=== PATIENT | male | born 1955 | race Caucasian/White ===

== ENCOUNTER 2020-04-13 09:33 | Outpatient (REF) | payer SELFPAY | END 2020-04-13 09:34 | disposition home or self-care (01) | LOC: HO.HAP 09:33 | PROVIDERS: Visit Provider Nurse Practitioner Family | DX: Z46.1 Encounter for fitting and adjustment of hearing aid (principal) | CPT/HCPCS: 92700 ==

== ENCOUNTER 2021-02-08 09:42 | Outpatient (REF) | payer SELFPAY ==
--- NOTE | 2021-02-08 11:24 | MHC.AU.HFU ---
Hearing Instrument Follow-Up- Binaural Date of Visit: 02/08/21 Right Ear: Director Of Extension Work: Phonak Model: AVELINA Q50-UP Serial Number: [id number] Repair Warranty: Loss and Damage Warranty: Battery Size: 675 Color: Beige Left Ear: Currently using a loaner Phonak Avelina B90-UP (#[id number]). Loaned to patient on 07/16/2018. Follow-Up Summary: Patient reports that the volume on his right hearing aid has been going up and down randomly. Both hearing aids were inspected. Significant debris in both battery compartments, worse in the right. Microphone filters on the right hearing aid were dark, suggesting they were mostly clogged. Molds cleaned and re-tubed. Microphone filters replaced on the right instrument. Microphones vacuumed on the left instrument (no filters on that model). [place] replaced. Debris cleaned out of battery compartments. Took volume control switch off the right hearing aid, cleaned underneath it, and put it back on. Put both hearing aids in the yolk spray drier for several minutes. Hearing aids are both amplifying clearly after maintenance. The right side does not appear to be changing volume randomly at the moment; however, it has been an intermittent issue and we cannot yet be certain if maintenance resolved the problem. Patient reports that he still has [employer], which does not cover hearing aid services. He has been trying to get back on [facility], but has been unsuccessful. Provided patient with a form containing contact information for [facility]. Strongly suggested that he contact them to discuss a new pair of hearing aids. Diagnosis Code(s): Primary Diagnosis: H90.3 Bilateral Sensorineural Hearing Loss Signature: Provider: Farnaz Sweet, [facility]
== END 2021-02-08 09:43 | disposition home or self-care (01) ==
LOC: HO.HAP 09:42
PROVIDERS: Visit Provider Nurse Practitioner Family
DX: Z46.1 Encounter for fitting and adjustment of hearing aid (principal); H90.3 Sensorineural hearing loss, bilateral
CPT/HCPCS: 99499

== ENCOUNTER 2021-03-31 12:38 | Inpatient (IN) | payer MEDICARE, OTHER, SELFPAY ==
--- NOTE | ~2021-03-31 | XR_ITS ---
EXAMINATION: XR CHEST CLINICAL INFORMATION: SOB. COMPARISON: None TECHNIQUE: Frontal view of the chest was obtained. FINDINGS: No significant abnormality is noted involving the heart, lungs, mediastinum, bony thorax or soft tissues. XR/XR chest 1V IMPRESSION: Unremarkable chest examination.
--- NOTE | ~2021-03-31 | CT_ITS ---
EXAMINATION: CT HEAD WITHOUT CONTRAST CLINICAL INFORMATION: Right-sided weakness COMPARISON: None TECHNIQUE: Contiguous axial imaging was performed from the skull base to vertex without intravenous administration of contrast. This CT examination was performed using dose optimization techniques as appropriate, variously including the following: *Automated exposure control *Adjustment of mA and/or kV according to patient size (this includes techniques or standardized protocols for targeted exams where dose is matched to indication/reason for exam; i.e. extremities or head) *Use of iterative reconstruction technique DLP: 709 mGy-cm FINDINGS: No intracranial hemorrhage, tumors or acute infarcts are noted. Mild diffuse commensurate prominence of ventricles and sulci is noted. No focal parenchymal lesions the brain. No abnormal extra-axial fluid collections. No significant opacification of the visualized paranasal sinuses, mastoid air cells and middle ear cavities. CT/CT head/brain wo con IMPRESSION: -Normal unenhanced CT the head.
--- NOTE | ~2021-03-31 | CT_ITS ---
EXAMINATION: CT ANGIOGRAM NECK CLINICAL INFORMATION: Ataxia. Right-sided weakness. COMPARISON: CT head 03/31/2021. TECHNIQUE: IV contrast enhanced CT angiography of the head and neck. Intravenous contrast: Omnipaque 350 70 mL. The degree of stenosis determined by NASCET criteria. This CT examination was performed using dose optimization techniques as appropriate, variously including the following: *Automated exposure control *Adjustment of mA and/or kV according to patient size (this includes techniques or standardized protocols for targeted exams where dose is matched to indication/reason for exam; i.e. extremities or head) *Use of iterative reconstruction technique DLP: 1580 mGy-cm FINDINGS: CT angiography neck: Nonocclusive calcific atherosclerosis within the transverse aorta. Common origin of the brachiocephalic and left common carotid arteries. Nonocclusive ostial calcifications associated with the origins of the great vessels. 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 Mild (less than 50%) bilateral carotid bulb and proximal internal carotid artery stenoses secondary to eccentric anomaly calcific and also noncalcific atherosclerotic plaque without ulceration. Dominant left vertebral artery. Nonocclusive ostial calcifications of the origin of the left vertebral artery which emanates from the transverse aorta is noted above. CT angiography head: Partial type origin of the right posterior cerebral artery. Nonocclusive segmental calcific atherosclerosis of the cavernous portions of the internal carotid arteries. [place] anterior cerebral artery emanating from the A1 segment of the left anterior cerebral artery. Arterial phase evaluation of the brain demonstrates no gross sac perfusion abnormalities of the brain parenchyma. Mild diffuse commensurate prominence of ventricles and sulci. No intrarenal hemorrhage, tumors or acute infarcts noted. Clear internally visualized lung apices. Normal thyroid. No cervical lymphadenopathy. Delayed IV contrast-enhanced CT the head: No abnormal enhancement the brain parenchyma. Moderate multilevel intervertebral disc space narrowing and posterior endplate osteophytosis of the cervical spine along with moderate multilevel facet hypertrophic changes. CT/CT angio head neck IMPRESSION: CT angiography head and neck: -No acute abnormalities. -No large vessel intracranial occlusions. -Mild (less than 50%) stenoses of the origins of the internal carotid artery secondary to prominently calcific eccentric, nonulcerative atherosclerotic plaque. 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 Common origin of the brachiocephalic and left common carotid arteries.
--- NOTE | ~2021-03-31 | MR_ITS ---
EXAMINATION: MR BRAIN WITHOUT CONTRAST CLINICAL INFORMATION: Off balance. Ataxia. Evaluate for stroke. COMPARISON: Head CTA March 31, 2021. TECHNIQUE: Multiplanar, multisequence imaging of the brain was performed without intravenous contrast. FINDINGS: There is a small acute lacunar infarct within the left lateral thalamus. No large territorial infarction is seen. There is no hemorrhage, mass, or extra-axial fluid collection. Mild patchy foci of T2/FLAIR hyperintensity are seen within the cerebral white matter. The ventricles are normal in size without evidence of hydrocephalus. The major arterial flow voids are preserved at the skull base. The orbital contents appear normal with lens replacements noted. Degenerative changes are incidentally seen within the upper cervical spine. MR/MR head/brain wo con IMPRESSION: Small focus of acute lacunar infarction within the left lateral thalamus. No large territory infarction or hemorrhage is seen.
[2021-03-31 12:59] VITALS: BP 174/83; BP 185/85; PULSE 96; RESP 19; TEMP 36.6; O2SAT 97; O2SAT 99; BMI 32.2
--- NOTE | 2021-03-31 13:39 | ED.GENADULT ---
HPI - General Adult General Chief complaint: General Medical Stated complaint: R LEG WEAKNESS W/FALL T-1 Time Seen by Provider: 03/31/21 13:27 History of Present Illness HPI narrative: Patient is a 66-year-old male presents today with having right-sided weakness. Patient has a baseline history of diabetes, hypertension, hypercholesterolemia. Presented today with having right-sided weakness. Patient has stated that his last known well time was yesterday at 15:00. Patient denies any fever chills. No history of stroke on that side in the past. Patient noted that he was dragging his feet today. Patient has a difficulty with hearing. Usually use sign language. Per patient his voice is approximately the same. He is able to do hand gestures without any difficulties. He has a slight tingling in his hands. But his weakness almost prevail in in the right leg. He feels like his leg is dragging. Patient denies any trauma to his leg. No history of similar symptoms in the past. No coughing or congestion or upper respiratory symptoms. Patient is immunized for COVID. Related Data Allergies Allergy/AdvReac Type Severity Reaction Status Date / Time No Known Allergies Allergy Unverified 03/23/20 16:26 [No Known Allergies*] Review of Systems Review of Systems: No fever no chills no nausea no vomiting Positive weakness to the right leg Positive weakness to the right hand No changes in speech All systems reviewed otherwise negative [facility] Past Medical History Medical History (Updated 03/31/21 @ 14:39 by Claudia Murphy MD) Diabetes High cholesterol HTN (hypertension) Social History Social History Advance Directives: No Advance Directives Information Provided: No Physical Exam Vital Signs: Vital Signs: Last Vital Signs Temp 98 F 03/31/21 12:59 Resp 19 03/31/21 12:59 BP 174/83 H 03/31/21 12:59 Pulse Ox 97 03/31/21 12:59 Body Mass Index 32.2 Appearance: Alert. Oriented X3. No acute distress. Eyes: Pupils equal, round and reactive to light. ENT: Pharynx normal. Neck: Normal inspection. Neck supple. No lymph nodes noted. No crepitus CVS: Normal heart rate and rhythm. Pulses normal. Normal S1 and S2 Respiratory: No respiratory distress. Breath sounds normal. No Wheezing. No rales Abdomen: Soft and nontender. No rigidity. No distention. good BS x4 Skin: Skin warm and dry. Normal skin color. Normal skin turgor. Extremities: No lower extremity edema. Neurovascular intact to all extremities. No Lacerations. No Rash Neuro: Oriented X 3. No motor deficit. No sensory deficit. Moving all extermities. Positive slight weakness on lifting of right leg. Able to hold up against gravity for 5 seconds. Slight tremors noted when patient is elevating his arm. There is good strength in upper extremity. [id number] grossly intact. Rapid alternating movement grossly intact. Patient has excellent hand grasp bilaterally 5/5. There is no facial droop noted. Patient's voice appeared normal to him. NIH Stroke Scale Internal: Initial- Upon Arrival Level of Consciousness: Alert Level of Consciousness Questions: Answers both questions correctly Level of Consciousness Commands: Performs both tasks correctly Best Gaze: Normal Visual: No visual loss Facial Palsy: Normal Motor Arm (Right): No drift Motor Arm (Left): No drift Motor Leg (Right): Drift Motor Leg (Left): No drift Limb Ataxia: Absent Sensory: Normal Best Language: No aphasia Dysarthia: Normal Extinction and Inattention: No abnormality Score: 1 Medical Decision Making MDM Narrative Medical decision making narrative: CT scan of the head was grossly negative for any acute evidence of bleeding. Electrolytes unremarkable. Patient's symptoms is at 23:00 hours at this point. Not a good candidate for tPA. Patient's symptoms are minor. Not a good candidate for tPA. Will admit for further evaluation given patient has numerous risk factors for stroke. In stable condition awaiting admissions. Lab Data Result diagrams: 03/31/21 13:35 03/31/21 13:35 Labs: Lab Results 03/31/21 03/31/21 03/31/21 Range/Units 13:35 13:35 13:35 WBC 10.8 (4.8-10.8) X10*3/uL RBC 4.27 L (4.60-5.80) X10*6/uL Hgb 13.3 L (14.0-18.0) g/dl Hct 38.8 L (42-52) % MCV 90.9 (80-98) fL MCH 31.1 (27.0-33.0) pg MCHC 34.3 (31.0-36.0) g/dl RDW 12.9 (11.0-16.0) % Plt Count 341 (160-400) X10*3/uL MPV 9.7 (9.4-12.4) fL Immature Gran % (Auto) 0.4 (0.0-0.4) % Neut % (Auto) 61.3 (45-73) % Lymph % (Auto) 26.7 (20-40) % [place] % (Auto) 7.9 (2-11) % Eos % (Auto) 3.0 (0-4) % Baso % (Auto) 0.7 (0-2) % Lymph # (Auto) 2.9 (1.2-4.9) X10*3/uL [place] # (Auto) 0.9 (0.1-1.2) X10*3/uL Eos # (Auto) 0.3 (0.0-0.4) X10*3/uL Baso # (Auto) 0.1 (0.0-0.2) X10*3/uL Abs Immat Gran (auto) 0.04 H (0.00-0.03) X10*3/uL Absolute Neuts (auto) 6.6 (2.0-8.3) X10*3/uL Absolute Nucleated RBC 0.000 (0.0-0.012) X10*3/uL Nucleated RBC % (auto) 0.0 (0.0-0.2) /100WBC PT 10.5 (9.9-13.0) SEC INR 0.9 (0.9-1.1) Sodium 141 (135-145) mmol/L Potassium 3.7 (3.3-5.1) mmol/L Chloride 107 (96-108) mmol/L Carbon Dioxide 21 L (22-29) mmol/L Anion Gap 17 (12-20) BUN 17 H (9-16) mg/dL Creatinine 1.11 (0.5-1.4) mg/dL Estim Creat Clear Calc 66.2 Estimated GFR > 60 Random Glucose 95 (60-115) mg/dL Calcium 9.4 (8.4-10.2) mg/dL Discharge Plan Discharge Clinical Impression: Acute CVA (cerebrovascular accident) Patient Disposition: Admitted As Inpatient
[2021-03-31 13:45] LABS: MANUAL DIFF FLAG NO
[2021-03-31 13:48] LABS: Basophils Absolute Auto 0.1 X10*3/uL (0.0-0.2); Basophils Percent Auto 0.7 % (0-2); Eosinophils Absolute Auto 0.3 X10*3/uL (0.0-0.4); Hematocrit 38.8 % (42-52); Hemoglobin 13.3 g/dl (14.0-18.0); Imm Gran Abs Auto 0.04 X10*3/uL (0.00-0.03); Imm Gran Pct Auto 0.4 % (0.0-0.4); Lymphocytes Absolute Auto 2.9 X10*3/uL (1.2-4.9); Lymphocytes Percent Auto 26.7 % (20-40); Mean Corpuscular HGB Conc 34.3 g/dl (31.0-36.0); Mean Corpuscular Hemoglobin 31.1 pg (27.0-33.0); Mean Corpuscular Volume 90.9 fL (80-98); Mean Platelet Volume 9.7 fL (9.4-12.4); Monocytes Absolute Auto 0.9 X10*3/uL (0.1-1.2); Monocytes Percent Auto 7.9 % (2-11); Neutrophils Absolute Auto 6.6 X10*3/uL (2.0-8.3); Neutrophils Percent Auto 61.3 % (45-73); Platelet Count 341 X10*3/uL (160-400); Red Blood Count 4.27 X10*6/uL (4.60-5.80); Red Cell Distribution Width 12.9 % (11.0-16.0); White Blood Count 10.8 X10*3/uL (4.8-10.8)
[2021-03-31 13:55] LABS: INTERNATIONAL NORM RATIO 0.9 (0.9-1.1); Prothrombin Time 10.5 SEC (9.9-13.0)
[2021-03-31 14:01] LABS: Anion Gap 17 (12-20); Blood Urea Nitrogen 17 mg/dL (9-16); Calcium 9.4 mg/dL (8.4-10.2); Carbon Dioxide 21 mmol/L (22-29); Chloride 107 mmol/L (96-108); Creatinine Clr Calc Pharmacy 66.2; Estimated Glomerular Filt Rate > 60; Glucose Random 95 mg/dL (60-115); Potassium 3.7 mmol/L (3.3-5.1); Sodium 141 mmol/L (135-145)
[2021-03-31 16:22] VITALS: BP 157/74; PULSE 82; RESP 16; O2SAT 95
--- NOTE | 2021-03-31 16:26 | PM.EVENT ---
Event Note Date of Service: 03/31/21 Event Note: Patient seen examined case discussed with APC Patient presented with 12 hour history of right-sided weakness, unsteady gait and leaning more towards right, no prior history of stroke Patient has multiple risk factors for stroke including diabetes mellitus, hyperlipidemia, hypertension active tobacco use On examination Patient use sign language, awake alert answering questions appropriately CVS regular rate rhythm Abdomen obese soft nontender bowel sounds audible Extremities no edema Neuro exam, awake alert x3, unsteady gait, heel to redman and finger to nose test abnormal Assessment and plan Unsteady gait/right-sided weakness positive cerebellar signs on examination suggestive of cerebellar stroke CT head negative Case discussed with Dr. Mckeon he recommend to obtain MRI study, CT head and neck, avoid hypotension with goal of systolic BP greater than [address] patient on aspirin, continue statins, placed on diabetic diet follow blood sugars Strongly recommend to abstain from smoking, will place on nicotine patch Agree with treatment plan as per APC
--- NOTE | 2021-03-31 16:32 | PM.IMHP ---
History of Present Illness Date of Service: 03/31/21 <TAMI Mcknight - Last Filed: 03/31/21 17:36> Attending physician on admission: Eitan Moya <TAMI Mcknight - Last Filed: 03/31/21 17:36> Chief Complaint: Off balance <TAMI Mcknight - Last Filed: 03/31/21 17:36> This is a 66-year-old male with history of diabetes, hypertension, hyperlipidemia who presents to the emergency department with complaints of feeling off balance. Patient is legally deaf and primarily communicates with the use of [place] sign language. He states that around 4 or 5 pm last night he got up to walk around and started feeling off balance. He kept drifting to his right side. He felt that his right side may also be weaker than the left. He did not notice any change in his speech. He presented to the emergency department this afternoon when his symptoms persisted. Brain CT was unremarkable. Lab work was unremarkable. Physical exam revealed ongoing ataxia and the patient will be admitted to the hospital for further workup of probable cerebellar stroke. <TAMI Mcknight - Last Filed: 03/31/21 17:36> Review of Systems Review of Systems: Yes all other systems are reviewed and are negative <TAMI Mcknight - Last Filed: 03/31/21 17:36> Constitutional: Constitutional: Denies chills and Denies fever(s) <TAMI Mcknight - Last Filed: 03/31/21 17:36> Cardiovascular: Cardiovascular: Denies chest pain <TAMI Mcknight Last Filed: 03/31/21 17:36> Respiratory: Respiratory: Denies cough <TAMI Mcknight - Last Filed: 03/31/21 17:36> Gastrointestinal: Gastrointestinal: Denies abdominal pain <TAMI Mcknight - Last Filed: 03/31/21 17:36> [facility] Medical History: Medical History Diabetes High cholesterol HTN (hypertension) <TAMI Mcknight Last Filed: 03/31/21 17:36> Functional capacity: independent ambulation <TAMI Mcknight - Last Filed: 03/31/21 17:36> Pertinent family history: Mom has history of kidney cancer Father had history of CHF <TAMI Mcknight - Last Filed: 03/31/21 17:36> Social History: Social History Household Members: Children Household Members Other:: Son Housing: House Patient Tobacco Use Status: Current everyday Tobacco user Use of substances other than those prescribed or required for medical reasons: No Have you been hit, kicked, punched, or otherwise hurt by someone within the past year? If so, by whom?: No Do you feel safe in your current relationship?: No Current Relationship Is there a partner from a previous relationship who is making you feel unsafe now?: No Are you made to feel afraid or neglected: No Advance Directives: No Advance Directives Information Provided: No Nutrition Risks: No Nutritional Risk Poor oral hygiene: No <TAMI Mcknight - Last Filed: 03/31/21 17:36> Meds Allergies/Adverse reactions: Allergies Allergy/AdvReac Type Severity Reaction Status Date / Time No Known Allergies Allergy Unverified 03/23/20 16:26 [No Known Allergies*] <TAMI Mcknight - Last Filed: 03/31/21 17:36> Active Medications: Current Medications Acetaminophen (Acetaminophen 325 Mg Tablet) 650 mg PO Q6H PRN PRN Reason: Pain, Mild (Pain Scale 1-3) Aspirin (Aspirin Enteric Coated 81 Mg Tablet.) 81 mg PO DAILY DEAN Aspirin (Aspirin Enteric Coated 325 Mg Tablet.) 325 mg PO ONCE ONE Stop: 03/31/21 16:31 Atorvastatin Calcium (Atorvastatin Calcium 80 Mg Tablet) 80 mg PO BEDTIME DEAN Dextrose (Dextrose 50 % 25 Gm/50 Ml Vial) 25 gm IVPUSH Q15M PRN; Protocol PRN Reason: per Hypoglycemia Standing Ord. Docusate Sodium (Docusate Sodium 100 Mg Capsule) 100 mg PO DAILY PRN PRN Reason: Constipation Enoxaparin Sodium (Enoxaparin Sodium 40 Mg/0.4 Ml Syringe) 40 mg SUBCUT Q24H DEAN Glucose (Glucose Gel 15 Gm Gel..Gram.) 15 gm PO Q15M PRN; Protocol PRN Reason: per Hypoglycemia Standing Ord. Insulin Human Lispro (Insulin Lispro 100 Unit/Ml 3 Ml Vial) 0 unit SUBCUT QIDACHS [facility]; Protocol Nicotine (Nicotine 21 Mg Patch.Td24) 21 mg TRANSDERMA DAILY DEAN Ondansetron HCl (Ondansetron Hcl 4 Mg/2 Ml Vial) 4 mg IVPUSH Q8H PRN PRN Reason: Nausea and Vomiting Sodium Chloride (0.9 % Sodium Chloride Flush 3 Ml Syringe) 3 ml IVFLUSH QSHIFT [facility] <TAMI Mcknight - Last Filed: 03/31/21 17:36> Home medications: Home Medications Medication Instructions Recorded Confirmed Last Taken Type amlodipine 10 mg tablet 1 tab PO DAILY 03/31/21 03/31/21 Unknown History aspirin 81 mg tablet,delayed 1 tab PO DAILY 03/31/21 03/31/21 Unknown History release atorvastatin 20 mg tablet 1 tab PO DAILY 03/31/21 03/31/21 Unknown History dulaglutide 1.5 mg/0.5 mL 1.5 mg SUBCUT QWEEK 03/31/21 03/31/21 03/31/21 History subcutaneous pen injector (Trulicity) ergocalciferol (vitamin D2) 1,250 1 cap PO QWEEK 03/31/21 03/31/21 Unknown History mcg (50,000 unit) capsule glimepiride 4 mg tablet 1 tab PO QAM 03/31/21 03/31/21 Unknown History lisinopril 20 1 tab PO DAILY 03/31/21 03/31/21 Unknown History mg-hydrochlorothiazide 12.5 mg tablet metformin 1,000 mg tablet 1 tab PO BID 03/31/21 03/31/21 Unknown History omeprazole 20 mg capsule,delayed 1 cap PO DAILY 03/31/21 03/31/21 Unknown History release <TAMI Mcknight - Last Filed: 03/31/21 17:36> Physical Exam Vital Signs and Narrative: Vital Signs: Last Vital Signs Temp 98 F 03/31/21 12:59 Pulse 82 03/31/21 16:22 Resp 16 03/31/21 16:22 BP 157/74 H 03/31/21 16:22 Pulse Ox 95 03/31/21 16:22 Body Mass Index 32.2 <TAMI Mcknight - Last Filed: 03/31/21 17:36> Const: General: alert and awake <TAMI Mcknight - Last Filed: 03/31/21 17:36> Nutritional Appearance: well nourished <TAMI Mcknight - Last Filed: 03/31/21 17:36> Orientation/consciousness: patient oriented x3 <TAMI Mcknight - Last Filed: 03/31/21 17:36> HENMT: Head: Yes normocephalic and Yes atraumatic <TAMI Mcknight - Last Filed: 03/31/21 17:36> Eyes: Sclerae: sclerae normal <TAMI Mcknight - Last Filed: 03/31/21 17:36> Resp: Effort & Inspection: normal respiratory effort and no respiratory distress <TAMI Mcknight - Last Filed: 03/31/21 17:36> Auscultation: clear to auscultation bilaterally <TAMI Mcknight - Last Filed: 03/31/21 17:36> Cardio: Rate: regular rate <TAMI Mcknight - Last Filed: 03/31/21 17:36> Rhythm: regular rhythm <TAMI Mcknight - Last Filed: 03/31/21 17:36> GI: Palpation (GI): Soft to palpation and nontender <TAMI Mcknight - Last Filed: 03/31/21 17:36> Neuro: General: patient oriented x3 and moves all extremities <TAMI Mcknight - Last Filed: 03/31/21 17:36> Gait exam (Neuro): Ataxic gait present <TAMI Mcknight - Last Filed: 03/31/21 17:36> Coordination: No [id number] test normal and No [id number] test normal <TAMI Mcknight - Last Filed: 03/31/21 17:36> Results Labs CBC and Chem 7: : 04/01/21 06:25 04/01/21 06:25 <TAMI Mcknight - Last Filed: 03/31/21 17:36> Labs: Laboratory Results - last 24 hr 03/31/21 03/31/21 03/31/21 13:35 13:35 13:35 MCV 90.9 MCH 31.1 MCHC 34.3 RDW 12.9 Plt Count 341 MPV 9.7 Immature Gran % (Auto) 0.4 Neut % (Auto) 61.3 Lymph % (Auto) 26.7 [place] % (Auto) 7.9 Eos % (Auto) 3.0 Baso % (Auto) 0.7 Lymph # (Auto) 2.9 [place] # (Auto) 0.9 Eos # (Auto) 0.3 Baso # (Auto) 0.1 Abs Immat Gran (auto) 0.04 H Absolute Neuts (auto) 6.6 Absolute Nucleated RBC 0.000 Nucleated RBC % (auto) 0.0 PT 10.5 INR 0.9 Anion Gap 17 Estim Creat Clear Calc 66.2 Estimated GFR > 60 Random Glucose 95 Calcium 9.4 <TAMI Mcknight - Last Filed: 03/31/21 17:36> Imaging Radiologist's Impressions: Impressions Head CT 03/31/21 13:29 IMPRESSION: -Normal unenhanced CT the head. Chest X-Ray 03/31/21 13:30 IMPRESSION: Unremarkable chest examination. <TAMI Mcknight - Last Filed: 03/31/21 17:36> Assessment and Plan (1) Acute CVA (cerebrovascular accident): Status: Acute <TAMI Mcknight - Last Filed: 03/31/21 17:36> This is a 66-year-old male with a history of diabetes, hypertension, dyslipidemia, deafness, tobacco use who presents to the emergency department with 24 hours of unsteady gait Probable cerebellar stroke Symptoms ongoing for 24 hours, out of window for tPA Risk factors include: smoking, HTN, HLD, DM Brain CT unremarkable Seen by Neurology, recommend CTA of head and neck, MRI Neuro checks Echo PT/OT evaluation Check Lipid profile, HbA1c Will start aspirin, high intensity statin Allow for permissive hypertension with goal to keep BP above 160. BP medications will be placed on hold Smoking cessation has been advised Tobacco dependence NRT Diabetes Hold home medications SSI, POCs Hypertension Allow for permissive hypertension in the setting of probable stroke Hold home blood pressure medication gerd continue omeprazole DVT prophylaxis -Lovenox Code status-full code Attending physician-Dr. Moya <TAMI Mcknight - Last Filed: 03/31/21 17:36> Quality Stroke Does the patient have a stroke diagnosis?: Yes <TAMI Mcknight - Last Filed: 03/31/21 17:36> Reason for No Anti-thrombotic by Day Two: N/A - Med Ordered <TAMI Mcknight - Last Filed: 03/31/21 17:36> VTE Prior VTE?: No <TAMI Mcknight - Last Filed: 03/31/21 17:36> VTE Risk Level:: Medical - moderate - high <TAMI Mcknight - Last Filed: 03/31/21 17:36> VTE Device Contraindication: N/A - Device Ordered <TAMI Mcknight - Last Filed: 03/31/21 17:36> VTE Drug Contraindication: N/A - Med Ordered <TAMI Mcknight - Last Filed: 03/31/21 17:36>
[2021-03-31 16:57] LABS: Glucose, Whole Blood 53 mg/dL (60-115)
[2021-03-31] MEDS: Enoxaparin Sodium 40 MG/0.4 ML SYRINGE SUBCUT (17:16)
[2021-03-31] MEDS: Aspirin Enteric Coated 325 MG TABLET.DR PO (17:16)
[2021-03-31 17:17] LABS: COVID-19 Test Negative (Negative)
--- NOTE | 2021-03-31 17:20 | PC.NURSE ---
POC 53, pt given sandwich and apple juice. Neuros are unchanged, no weakness to right upper ext notedand pt reports only weak to right lower extr. Pt speech at baseline. skin pwd.
[2021-03-31 17:21] VITALS: BP 164/71; PULSE 86; RESP 16; O2SAT 97
[2021-03-31] MEDS: Nicotine 21 MG PATCH.TD24 TRANSDERMA (17:24)
[2021-03-31 17:44] LABS: Cholesterol 251 mg/dL; HDL Cholesterol 46 mg/dL; LDL Cholesterol Calculated 164 mg/dl; Triglycerides 208 mg/dL
[2021-03-31 17:49] LABS: Estimated Average Glucose 169 mg/dL; Hemoglobin A1C 198.1925 umol/L; Hemoglobin A1c % 7.5 %
[2021-03-31 17:53] LABS: Glucose, Whole Blood 102 mg/dL (60-115)
[2021-03-31] MEDS: iohexoL 350 MG/ML 100 ML INFUS..BTL IV (18:23)
[2021-03-31 19:35] LABS: Appearance Urine CLEAR; Color Urine STRAW; Glucose Urine UA 250 MG/DL (NEG); Leukocyte Esterase Urine NEG (NEG); Nitrite Urine NEG (NEG); Specific Gravity - Urine <= 1.005 (1.005-1.025); UACC Culture Trigger NO; Urine Blood TRACE (NEG); Urine Ketones NEG (NEG); Urine Protein 2+ MG/DL (NEG-TRACE)
[2021-03-31 19:45] LABS: RBC Urine 0-2 /HPF (0); Squamous Epithelial Cell Urine 1+ /LPF; WBC Urine 0-2 /HPF (0-4)
[2021-03-31 19:46] LABS: Amorphous Sediment Urine TRACE /LPF
[2021-03-31 22:00] VITALS: BP 170/78; PULSE 83; RESP 16; TEMP 36.2; O2SAT 97
[2021-03-31 23:18] LABS: Glucose, Whole Blood 99 mg/dL (60-115)
[2021-04-01] VITALS (9 sets, daily range): BP systolic 142–183; BP diastolic 66–82; PULSE 57–84; RESP 16–20; TEMP 36.2–36.9; O2SAT 95–99
[2021-04-01] MEDS: Atorvastatin Calcium 80 MG TABLET PO ×2 (00:01→20:08)
--- NOTE | 2021-04-01 00:06 | PC.NURSE ---
pt's poc 69, pt given turkey sandwich, apple juice and pudding, respirations even and unlabored, ns on the monitor, vs stable
--- NOTE | 2021-04-01 00:08 | PC.NURSE ---
report given to [facility] rn
[2021-04-01 00:44] LABS: Glucose, Whole Blood 69 mg/dL (60-115)
[2021-04-01 01:32] LABS: Glucose, Whole Blood 126 mg/dL (60-115)
[2021-04-01] MEDS: Omeprazole 20 MG CAPSULE.DR PO (06:55)
[2021-04-01 07:14] LABS: MANUAL DIFF FLAG NO
[2021-04-01 07:19] LABS: Basophils Absolute Auto 0.1 X10*3/uL (0.0-0.2); Basophils Percent Auto 0.9 % (0-2); Eosinophils Absolute Auto 0.4 X10*3/uL (0.0-0.4); Eosinophils Percent Auto 4.5 % (0-4); Hematocrit 33.5 % (42-52); Hemoglobin 11.3 g/dl (14.0-18.0); Imm Gran Abs Auto 0.04 X10*3/uL (0.00-0.03); Imm Gran Pct Auto 0.4 % (0.0-0.4); Lymphocytes Absolute Auto 2.3 X10*3/uL (1.2-4.9); Lymphocytes Percent Auto 25.5 % (20-40); Mean Corpuscular HGB Conc 33.7 g/dl (31.0-36.0); Mean Corpuscular Hemoglobin 30.4 pg (27.0-33.0); Mean Corpuscular Volume 90.1 fL (80-98); Mean Platelet Volume 10.1 fL (9.4-12.4); Monocytes Absolute Auto 0.9 X10*3/uL (0.1-1.2); Monocytes Percent Auto 9.6 % (2-11); Neutrophils Absolute Auto 5.3 X10*3/uL (2.0-8.3); Neutrophils Percent Auto 59.1 % (45-73); Platelet Count 310 X10*3/uL (160-400); Red Blood Count 3.72 X10*6/uL (4.60-5.80); Red Cell Distribution Width 12.7 % (11.0-16.0); White Blood Count 9.1 X10*3/uL (4.8-10.8)
[2021-04-01 07:47] LABS: Anion Gap 15 (12-20); Blood Urea Nitrogen 16 mg/dL (9-16); Calcium 8.7 mg/dL (8.4-10.2); Carbon Dioxide 25 mmol/L (22-29); Chloride 104 mmol/L (96-108); Cholesterol 206 mg/dL; Estimated Glomerular Filt Rate > 60; Glucose Random 170 mg/dL (60-115); HDL Cholesterol 34 mg/dL; LDL Cholesterol Calculated 133 mg/dl; Potassium 3.8 mmol/L (3.3-5.1); Sodium 140 mmol/L (135-145); Triglycerides 197 mg/dL
[2021-04-01 08:06] LABS: Glucose, Whole Blood 148 mg/dL (60-115)
[2021-04-01] MEDS: Aspirin Enteric Coated 81 MG TABLET.DR PO (08:32)
[2021-04-01 11:17] LABS: Glucose, Whole Blood 128 mg/dL (60-115)
--- NOTE | 2021-04-01 12:39 | HO.PM.IMPN ---
Subjective Subjective Date of Service: 04/01/21 <TAMI Mcknight - Last Filed: 04/01/21 12:55> 04/01/21 <Eitan Moya MD - Last Filed: 04/01/21 18:29> Interval History: Seen and examined this morning Follow-up for probable cerebellar stroke Episode of hypoglycemia documented yesterday afternoon, pt asymptomatic No overnight events Patient reports that his balance is improving. He was reportedly able to ambulate without leaning to the side <TAMI Mcknight - Last Filed: 04/01/21 12:55> Review of Systems Review of Systems: Yes all other systems are reviewed and are negative <TAMI Mcknight - Last Filed: 04/01/21 12:55> Constitutional Constitutional: Denies chills and Denies fever(s) <TAMI Mcknight - Last Filed: 04/01/21 12:55> Cardiovascular Cardiovascular: Denies chest pain <TAMI Mcknight - Last Filed: 04/01/21 12:55> Respiratory Respiratory: Denies cough <TAMI Mcknight - Last Filed: 04/01/21 12:55> Gastrointestinal Gastrointestinal: Denies abdominal pain <TAMI Mcknight - Last Filed: 04/01/21 12:55> Physical Exam Vital Signs: Vital Signs: Last Vital Signs Temp 97.4 F 04/01/21 12:00 Pulse 67 04/01/21 12:00 Resp 18 04/01/21 12:00 BP 183/68 H 04/01/21 12:00 Pulse Ox 97 04/01/21 12:00 Body Mass Index 32.2 <TAMI Mcknight - Last Filed: 04/01/21 12:55> Const: General: alert and awake <TAMI Mcknight - Last Filed: 04/01/21 12:55> Nutritional Appearance: well nourished <TAMI Mcknight - Last Filed: 04/01/21 12:55> Orientation/consciousness: patient oriented x3 <TAMI Mcknight Last Filed: 04/01/21 12:55> HENMT: Head: Yes normocephalic and Yes atraumatic <TAMI Mcknight - Last Filed: 04/01/21 12:55> Eyes: Sclerae: sclerae normal <TAMI Mcknight Last Filed: 04/01/21 12:55> Resp: Effort & Inspection: normal respiratory effort and no respiratory distress <TAMI Mcknight Last Filed: 04/01/21 12:55> Auscultation: clear to auscultation bilaterally <TAMI Mcknight Last Filed: 04/01/21 12:55> Cardio: Rate: regular rate <TAMI Mcknight Last Filed: 04/01/21 12:55> Rhythm: regular rhythm <TAMI Mcknight Last Filed: 04/01/21 12:55> GI: Palpation (GI): Soft to palpation and nontender <TAMI Mcknight - Last Filed: 04/01/21 12:55> Neuro: Other: still with dysmetria on finger to nose test <TAMI Mcknight - Last Filed: 04/01/21 12:55> General: patient oriented x3 and moves all extremities <TAMI Mcknight Last Filed: 04/01/21 12:55> Objective Data Active Medications Acetaminophen (Acetaminophen 325 Mg Tablet) 650 mg PO Q6H PRN PRN Reason: Pain, Mild (Pain Scale 1-3) Aspirin (Aspirin Enteric Coated 81 Mg Tablet.) 81 mg PO DAILY [facility] Last Admin: 04/01/21 08:32 Dose: 81 mg Documented by: LUIZ Atorvastatin Calcium (Atorvastatin Calcium 80 Mg Tablet) 80 mg PO BEDTIME [facility] Last Admin: 04/01/21 00:01 Dose: 80 mg Documented by: SREEDHAR Dextrose (Dextrose 50 % 25 Gm/50 Ml Vial) 25 gm IVPUSH Q15M PRN; Protocol PRN Reason: per Hypoglycemia Standing Ord. Docusate Sodium (Docusate Sodium 100 Mg Capsule) 100 mg PO DAILY PRN PRN Reason: Constipation Enoxaparin Sodium (Enoxaparin Sodium 40 Mg/0.4 Ml Syringe) 40 mg SUBCUT Q24H [facility] Last Admin: 03/31/21 17:16 Dose: 40 mg Documented by: ATTILA Glucose (Glucose Gel 15 Gm Gel..Gram.) 15 gm PO Q15M PRN; Protocol PRN Reason: per Hypoglycemia Standing Ord. Insulin Human Lispro (Insulin Lispro 100 Unit/Ml 3 Ml Vial) 0 unit SUBCUT QIDACHS [facility]; Protocol Last Admin: 04/01/21 08:13 Dose: Not Given Documented by: LUIZ Non-Admin Reason: No Insulin Coverage Nicotine (Nicotine 21 Mg Patch.Td24) 21 mg TRANSDERMA DAILY [facility] Last Admin: 04/01/21 08:37 Dose: Not Given Documented by: LUIZ Non-Admin Reason: Patient Refused Omeprazole (Omeprazole 20 Mg Capsule.Dr) 20 mg PO DAILY@0630 [facility] Last Admin: 04/01/21 06:55 Dose: 20 mg Documented by: BIJU Ondansetron HCl (Ondansetron Hcl 4 Mg/2 Ml Vial) 4 mg IVPUSH Q8H PRN PRN Reason: Nausea and Vomiting Sodium Chloride (0.9 % Sodium Chloride Flush 3 Ml Syringe) 3 ml IVFLUSH QSHIFT [facility] Last Admin: 04/01/21 09:03 Dose: Not Given Documented by: LUIZ Non-Admin Reason: IV Running <TAMI Mcknight - Last Filed: 04/01/21 12:55> Labs CBC & Chem 7: : 04/01/21 06:25 04/01/21 06:25 <TAMI Mcknight - Last Filed: 04/01/21 12:55> Labs: Laboratory Results - last 24 hr 03/31/21 03/31/21 03/31/21 13:35 13:35 13:35 MCV 90.9 MCH 31.1 MCHC 34.3 RDW 12.9 Plt Count 341 MPV 9.7 Immature Gran % (Auto) 0.4 Neut % (Auto) 61.3 Lymph % (Auto) 26.7 Butts % (Auto) 7.9 Eos % (Auto) 3.0 Baso % (Auto) 0.7 Lymph # (Auto) 2.9 Butts # (Auto) 0.9 Eos # (Auto) 0.3 Baso # (Auto) 0.1 Abs Immat Gran (auto) 0.04 H Absolute Neuts (auto) 6.6 Absolute Nucleated RBC 0.000 Nucleated RBC % (auto) 0.0 PT 10.5 INR 0.9 Anion Gap 17 Estim Creat Clear Calc 66.2 Estimated GFR > 60 POC Glucose Random Glucose 95 Estimat Average Glucose Hemoglobin A1c % Calcium 9.4 Triglycerides 208 Cholesterol 251 LDL Cholesterol, Calc 164 HDL Cholesterol 46 Urine Color Urine Appearance Urine pH Ur Specific Success Urine Protein Urine Glucose (UA) Urine Ketones Urine Blood Urine Nitrite Ur Leukocyte Esterase Urine RBC Urine WBC Ur Squamous Epith Cells Amorphous Sediment Urine Bacteria COVID-19 ([facility]) COVID-19 Clin Com 03/31/21 03/31/21 03/31/21 13:35 16:44 16:52 MCV MCH MCHC RDW Plt Count MPV Immature Gran % (Auto) Neut % (Auto) Lymph % (Auto) Butts % (Auto) Eos % (Auto) Baso % (Auto) Lymph # (Auto) Butts # (Auto) Eos # (Auto) Baso # (Auto) Abs Immat Gran (auto) Absolute Neuts (auto) Absolute Nucleated RBC Nucleated RBC % (auto) PT INR Anion Gap Estim Creat Clear Calc Estimated GFR POC Glucose 53 L* Random Glucose Estimat Average Glucose 169 Hemoglobin A1c % 7.5 Calcium Triglycerides Cholesterol LDL Cholesterol, Calc HDL Cholesterol Urine Color Urine Appearance Urine pH Ur Specific Success Urine Protein Urine Glucose (UA) Urine Ketones Urine Blood Urine Nitrite Ur Leukocyte Esterase Urine RBC Urine WBC Ur Squamous Epith Cells Amorphous Sediment Urine Bacteria COVID-19 ([facility]) Negative COVID-19 Clin Com See Note 03/31/21 03/31/21 03/31/21 17:49 19:28 22:40 MCV MCH MCHC RDW Plt Count MPV Immature Gran % (Auto) Neut % (Auto) Lymph % (Auto) Butts % (Auto) Eos % (Auto) Baso % (Auto) Lymph # (Auto) Butts # (Auto) Eos # (Auto) Baso # (Auto) Abs Immat Gran (auto) Absolute Neuts (auto) Absolute Nucleated RBC Nucleated RBC % (auto) PT INR Anion Gap Estim Creat Clear Calc Estimated GFR POC Glucose 102 99 Random Glucose Estimat Average Glucose Hemoglobin A1c % Calcium Triglycerides Cholesterol LDL Cholesterol, Calc HDL Cholesterol Urine Color STRAW Urine Appearance CLEAR Urine pH 6.0 Ur Specific Success <= 1.005 Urine Protein 2+ H Urine Glucose (UA) 250 H Urine Ketones NEG Urine Blood TRACE Urine Nitrite NEG Ur Leukocyte Esterase NEG Urine RBC 0-2 Urine WBC 0-2 Ur Squamous Epith Cells 1+ Amorphous Sediment TRACE Urine Bacteria NONE COVID-19 ([facility]) COVID-19 Clin Com 03/31/21 04/01/21 04/01/21 23:57 01:29 06:25 MCV 90.1 MCH 30.4 MCHC 33.7 RDW 12.7 Plt Count 310 MPV 10.1 Immature Gran % (Auto) 0.4 Neut % (Auto) 59.1 Lymph % (Auto) 25.5 Butts % (Auto) 9.6 Eos % (Auto) 4.5 H Baso % (Auto) 0.9 Lymph # (Auto) 2.3 Butts # (Auto) 0.9 Eos # (Auto) 0.4 Baso # (Auto) 0.1 Abs Immat Gran (auto) 0.04 H Absolute Neuts (auto) 5.3 Absolute Nucleated RBC 0.000 Nucleated RBC % (auto) 0.0 PT INR Anion Gap Estim Creat Clear Calc Estimated GFR POC Glucose 69 126 H Random Glucose Estimat Average Glucose Hemoglobin A1c % Calcium Triglycerides Cholesterol LDL Cholesterol, Calc HDL Cholesterol Urine Color Urine Appearance Urine pH Ur Specific Success Urine Protein Urine Glucose (UA) Urine Ketones Urine Blood Urine Nitrite Ur Leukocyte Esterase Urine RBC Urine WBC Ur Squamous Epith Cells Amorphous Sediment Urine Bacteria COVID-19 ([facility]) COVID-19 [facility] Com 04/01/21 04/01/21 04/01/21 06:25 07:37 11:05 MCV MCH MCHC RDW Plt Count MPV Immature Gran % (Auto) Neut % (Auto) Lymph % (Auto) Butts % (Auto) Eos % (Auto) Baso % (Auto) Lymph # (Auto) Butts # (Auto) Eos # (Auto) Baso # (Auto) Abs Immat Gran (auto) Absolute Neuts (auto) Absolute Nucleated RBC Nucleated RBC % (auto) PT INR Anion Gap 15 Estim Creat Clear Calc 65.0 Estimated GFR > 60 POC Glucose 148 H 128 H Random Glucose 170 H D Estimat Average Glucose Hemoglobin A1c % Calcium 8.7 D Triglycerides 197 Cholesterol 206 LDL Cholesterol, Calc 133 HDL Cholesterol 34 D Urine Color Urine Appearance Urine pH Ur Specific Success Urine Protein Urine Glucose (UA) Urine Ketones Urine Blood Urine Nitrite Ur Leukocyte Esterase Urine RBC Urine WBC Ur Squamous Epith Cells Amorphous Sediment Urine Bacteria COVID-19 ([facility]) COVID-19 Clin Com <TAMI Mcknight - Last Filed: 04/01/21 12:55> Assessment and Plan (1) Acute CVA (cerebrovascular accident): Status: Acute <TAMI Mcknight - Last Filed: 04/01/21 12:55> Assessment and Plan: This is a 66-year-old male with a history of diabetes, hypertension, dyslipidemia, deafness, tobacco use who presents to the emergency department with 24 hours of unsteady gait Probable cerebellar stroke Symptoms ongoing for 24 hours, out of window for tPA Risk factors include: smoking, HTN, HLD, DM Brain CT unremarkable. CTA head/neck with no large vessel occlusions, <50% stenosis of IC Neurology consult MRI brain pending Neuro checks Echo pending PT/OT evaluation Will start aspirin, high intensity statin Smoking cessation has been advised Tobacco dependence NRT Diabetes episode of hypglycemia 03/31. likely r/t to not eating for long period of time. pt asymptomatic Hba1c 7.5 home medications on hold SSI, POCs Hypertension BP meds initially held to allow for permissive hypertension Will resume home norvasc, lisinopril, HCTZ gerd continue omeprazole DVT prophylaxis -Lovenox Code status-full code Attending physician-Dr. Moya <TAMI Mcknight - Last Filed: 04/01/21 12:55> Quality Stroke Does the patient have a stroke diagnosis?: Yes <TAMI Mcknight - Last Filed: 04/01/21 12:55> Reason for No Anti-thrombotic by Day Two: N/A - Med Ordered <TAMI Mcknight - Last Filed: 04/01/21 12:55> VTE Prior VTE?: No <TAMI Mcknight - Last Filed: 04/01/21 12:55> VTE Risk Level:: Medical - moderate - high <TAMI Mcknight - Last Filed: 04/01/21 12:55> VTE Device Contraindication: N/A - Device Ordered <TAMI Mcknight - Last Filed: 04/01/21 12:55> VTE Drug Contraindication: N/A - Med Ordered <TAMI Mcknight - Last Filed: 04/01/21 12:55>
--- NOTE | 2021-04-01 13:22 | MHC.CM.PN ---
Attempted to meet with patient; he is asleep and not rousing. CM to make additional attempt later on. CM to follow.
--- NOTE | 2021-04-01 14:21 | P.CNNE_ITS ---
History of Present Illness Data of Consult Service Date: 03/31/21 Primary Care Provider: Love Anders NP [facility] Reason for consult: Acute onset of leaning to the right side and a tendency to fall This is a 66-year-old man with a history of hearing impairment who communicates with difficult to understand speech in sign language was in his usual state of health till 15:00 the day before admission when he noticed that he was having difficulty with his balance and he was leaning towards the right side with a tendency to fall. He came into the emergency room where he had a negative CT scan and CTA. There is no previous history of stroke. He has multiple stroke risk factors including diabetes hypertension hyperlipidemia and smoking. Review of Systems Review of Systems: No fever no chills no nausea no vomiting Positive weakness to the right leg Positive weakness to the right hand No changes in speech All systems reviewed otherwise negative Yes all other systems are reviewed and are negative Constitutional: Constitutional: Denies chills and Denies fever(s) Cardiovascular: Cardiovascular: Denies chest pain Respiratory: Respiratory: Denies cough Gastrointestinal: Gastrointestinal: Denies abdominal pain PMFSH Past Medical History Medical History Diabetes High cholesterol HTN (hypertension) Functional capacity: independent ambulation Family History Pertinent family history: Mom has history of kidney cancer Father had history of CHF Social History Social History Household Members: Children Household Members Other:: Son Housing: House Patient Tobacco Use Status: Current everyday Tobacco user Use of substances other than those prescribed or required for medical reasons: No Have you been hit, kicked, punched, or otherwise hurt by someone within the past year? If so, by whom?: No Do you feel safe in your current relationship?: No Current Relationship Is there a partner from a previous relationship who is making you feel unsafe now?: No Are you made to feel afraid or neglected: No Advance Directives: No Advance Directives Information Provided: No Nutrition Risks: No Nutritional Risk Poor oral hygiene: No Meds Allergies Allergy/AdvReac Type Severity Reaction Status Date / Time No Known Allergies Allergy Unverified 03/23/20 16:26 [No Known Allergies*] Active Medications: Current Medications Acetaminophen (Acetaminophen 325 Mg Tablet) 650 mg PO Q6H PRN PRN Reason: Pain, Mild (Pain Scale 1-3) Amlodipine Besylate (Amlodipine Besylate 10 Mg Tablet) 10 mg PO DAILY [facility]; Protocol Aspirin (Aspirin Enteric Coated 81 Mg Tablet.) 81 mg PO DAILY [facility] Last Admin: 04/01/21 08:32 Dose: 81 mg Documented by: Atorvastatin Calcium (Atorvastatin Calcium 80 Mg Tablet) 80 mg PO BEDTIME [facility] Last Admin: 04/01/21 00:01 Dose: 80 mg Documented by: Dextrose (Dextrose 50 % 25 Gm/50 Ml Vial) 25 gm IVPUSH Q15M PRN; Protocol PRN Reason: per Hypoglycemia Standing Ord. Docusate Sodium (Docusate Sodium 100 Mg Capsule) 100 mg PO DAILY PRN PRN Reason: Constipation Enoxaparin Sodium (Enoxaparin Sodium 40 Mg/0.4 Ml Syringe) 40 mg SUBCUT Q24H [facility] Last Admin: 03/31/21 17:16 Dose: 40 mg Documented by: Glucose (Glucose Gel 15 Gm Gel..Gram.) 15 gm PO Q15M PRN; Protocol PRN Reason: per Hypoglycemia Standing Ord. Hydrochlorothiazide (Hydrochlorothiazide 12.5 Mg Tablet) 12.5 mg PO DAILY [facility] Insulin Human Lispro (Insulin Lispro 100 Unit/Ml 3 Ml Vial) 0 unit SUBCUT QIDACHS [facility]; Protocol Last Admin: 04/01/21 12:48 Dose: Not Given Documented by: Lisinopril (Lisinopril 20 Mg Tablet) 20 mg PO DAILY [facility] Nicotine (Nicotine 21 Mg Patch.Td24) 21 mg TRANSDERMA DAILY [facility] Last Admin: 04/01/21 08:37 Dose: Not Given Documented by: Omeprazole (Omeprazole 20 Mg Capsule.) 20 mg PO DAILY@0630 [facility] Last Admin: 04/01/21 06:55 Dose: 20 mg Documented by: Ondansetron HCl (Ondansetron Hcl 4 Mg/2 Ml Vial) 4 mg IVPUSH Q8H PRN PRN Reason: Nausea and Vomiting Sodium Chloride (0.9 % Sodium Chloride Flush 3 Ml Syringe) 3 ml IVFLUSH QSHIFT [facility] Last Admin: 04/01/21 09:03 Dose: Not Given Documented by: Home Medications Medication Instructions Recorded Confirmed Last Taken Type amlodipine 10 mg tablet 1 tab PO DAILY 03/31/21 03/31/21 Unknown History aspirin 81 mg tablet,delayed 1 tab PO DAILY 03/31/21 03/31/21 Unknown History release atorvastatin 20 mg tablet 1 tab PO DAILY 03/31/21 03/31/21 Unknown History dulaglutide 1.5 mg/0.5 mL 1.5 mg SUBCUT QWEEK 03/31/21 03/31/21 03/31/21 History subcutaneous pen injector (Trulicity) ergocalciferol (vitamin D2) 1,250 1 cap PO QWEEK 03/31/21 03/31/21 Unknown History mcg (50,000 unit) capsule glimepiride 4 mg tablet 1 tab PO QAM 03/31/21 03/31/21 Unknown History lisinopril 20 1 tab PO DAILY 03/31/21 03/31/21 Unknown History mg-hydrochlorothiazide 12.5 mg tablet metformin 1,000 mg tablet 1 tab PO BID 03/31/21 03/31/21 Unknown History omeprazole 20 mg capsule,delayed 1 cap PO DAILY 03/31/21 03/31/21 Unknown History release Physical Exam Vital Signs: Vital Signs: Last Vital Signs Temp 97.4 F 04/01/21 12:00 Pulse 67 04/01/21 12:00 Resp 18 04/01/21 12:00 BP 183/68 H 04/01/21 12:00 Pulse Ox 97 04/01/21 12:00 Body Mass Index 32.2 Const: General: alert and awake Nutritional Appearance: well nourished Orientation/consciousness: patient oriented x3 HENMT: Head: Yes normocephalic and Yes atraumatic Eyes: Sclerae: sclerae normal Resp: Effort & Inspection: normal respiratory effort and no respiratory distress Auscultation: clear to auscultation bilaterally Cardio: Rate: regular rate Rhythm: regular rhythm GI: Palpation (GI): Soft to palpation and nontender Neuro: Other: He was alert and oriented. His speech was difficult to understand but still comprehensible. He was oriented and gave a history. Cranial nerves 2-12 were normal. There was no limb weakness and no drift, however, he had dysmetria on [id number] test and [id number] test on the right and when he was made to sit or stand he would lean backwards into the right with a tendency to fall to the right side. Plantar response are flexor bilaterally. Reflexes were hypoactive. still with dysmetria on finger to nose test General: patient oriented x3 and moves all extremities Gait exam (Neuro): Ataxic gait present (Tendency to fall to the right) Coordination: No [id number] test normal and No [id number] test normal Results Labs CBC & Chem 7: 04/01/21 06:25 04/01/21 06:25 Labs: Short CBC 04/01/21 Range/Units 06:25 WBC 9.1 (4.8-10.8) X10*3/uL Hgb 11.3 L (14.0-18.0) g/dl Hct 33.5 L (42-52) % Plt Count 310 (160-400) X10*3/uL BMP 04/01/21 06:25 Sodium 140 Potassium 3.8 Chloride 104 Carbon Dioxide 25 BUN 16 Creatinine 1.13 Calcium 8.7 D Urine 03/31/21 Range/Units 19:28 Urine Color STRAW Urine Appearance CLEAR Urine pH 6.0 (5.0-8.0) Ur Specific Cameron <= 1.005 (1.005-1.025) Urine Protein 2+ H (NEG-TRACE) MG/DL Urine Glucose (UA) 250 H (NEG) MG/DL Assessment and Plan (1) Acute CVA (cerebrovascular accident): Status: Acute On clinical grounds he appears to have a right cerebellar infarct. He has multiple stroke risk factors. Recommendation: MRI of the brain. If for some reason he is unable to have an MRI then a follow-up CT scan of the brain with thin cuts through the posterior fossa. PT OT. Continue aspirin. Cardiac monitoring for atrial fibrillation. Echocardiogram. Because this is a posterior fossa infarct, close observation should be kept for deterioration in his level of alertness in which case his stat CT should be done to make sure that there is no edema developing in the cerebellum that would require surgical intervention. This is a 66-year-old male with a history of diabetes, hypertension, dyslipidemia, deafness, tobacco use who presents to the emergency department with 24 hours of unsteady gait Probable cerebellar stroke Symptoms ongoing for 24 hours, out of window for tPA Risk factors include: smoking, HTN, HLD, DM Brain CT unremarkable. CTA head/neck with no large vessel occlusions, <50% stenosis of IC Neurology consult MRI brain pending Neuro checks Echo pending PT/OT evaluation Will start aspirin, high intensity statin Smoking cessation has been advised Tobacco dependence NRT Diabetes episode of hypglycemia 03/31. likely r/t to not eating for long period of time. pt asymptomatic Hba1c 7.5 home medications on hold SSI, POCs Hypertension BP meds initially held to allow for permissive hypertension Will resume home norvasc, lisinopril, HCTZ gerd continue omeprazole DVT prophylaxis -Lovenox Code status-full code Attending physician-Dr. Moya Procedures Date of Service Date of Service: 03/31/21
--- NOTE | 2021-04-01 14:30 | P.PNNE_ITS ---
Subjective Subjective Date of Service: 04/01/21 Interval History: Patient reports that his balance is improving. No headache or dizziness. Ambulating better today Critical Care Time (minutes): 0 Physical Exam Vital Signs: Vital Signs: Last Vital Signs Temp 97.4 F 04/01/21 12:00 Pulse 67 04/01/21 12:00 Resp 18 04/01/21 12:00 BP 183/68 H 04/01/21 12:00 Pulse Ox 97 04/01/21 12:00 Body Mass Index 32.2 Const: General: alert and awake Nutritional Appearance: well nourished Orientation/consciousness: patient oriented x3 HENMT: Head: Yes normocephalic and Yes atraumatic Eyes: Sclerae: sclerae normal Resp: Effort & Inspection: normal respiratory effort and no respiratory distress Auscultation: clear to auscultation bilaterally Cardio: Rate: regular rate Rhythm: regular rhythm GI: Palpation (GI): Soft to palpation and nontender Neuro: Other: He was alert and oriented. His speech was difficult to under stand but still comprehensible. He was oriented and gave a history. Cranial nerves 2-12 were normal. There was no limb weakness and no drift, has dysmetria on qcamxq-fg-hpgp test and tcsh-kgus-ntgq test on the right have improved. response are flexor bilaterally. Reflexes were hypoactive. General: patient oriented x3 and moves all extremities Gait exam (Neuro): Ataxic gait present (Tendency to fall to the right has improved) Coordination: No evaktp-iq-pslt test normal and No qohc-yn-exim test normal Objective Data Labs CBC & Chem 7: 04/01/21 06:25 04/01/21 06:25 Labs: Laboratory Results - last 24 hr 03/31/21 03/31/21 03/31/21 13:35 13:35 16:44 WBC RBC Hgb Hct MCV MCH MCHC RDW Plt Count MPV Immature Gran % (Auto) Neut % (Auto) Lymph % (Auto) Dixie % (Auto) Eos % (Auto) Baso % (Auto) Lymph # (Auto) Dixie # (Auto) Eos # (Auto) Baso # (Auto) Abs Immat Gran (auto) Absolute Neuts (auto) Absolute Nucleated RBC Nucleated RBC % (auto) Sodium Potassium Chloride Carbon Dioxide Anion Gap BUN Creatinine Estim Creat Clear Calc Estimated GFR POC Glucose Random Glucose Estimat Average Glucose 169 Hemoglobin A1c % 7.5 Calcium Triglycerides 208 Cholesterol 251 LDL Cholesterol, Calc 164 HDL Cholesterol 46 Urine Color Urine Appearance Urine pH Ur Specific [place] Urine Protein Urine Glucose (UA) Urine Ketones Urine Blood Urine Nitrite Ur Leukocyte Esterase Urine RBC Urine WBC Ur Squamous Epith Cells Amorphous Sediment Urine Bacteria COVID-19 ([facility]) Negative COVID-19 Clin Com See Note 03/31/21 03/31/21 03/31/21 16:52 17:49 19:28 WBC RBC Hgb Hct MCV MCH MCHC RDW Plt Count MPV Immature Gran % (Auto) Neut % (Auto) Lymph % (Auto) Dixie % (Auto) Eos % (Auto) Baso % (Auto) Lymph # (Auto) Dixie # (Auto) Eos # (Auto) Baso # (Auto) Abs Immat Gran (auto) Absolute Neuts (auto) Absolute Nucleated RBC Nucleated RBC % (auto) Sodium Potassium Chloride Carbon Dioxide Anion Gap BUN Creatinine Estim Creat Clear Calc Estimated GFR POC Glucose 53 L* 102 Random Glucose Estimat Average Glucose Hemoglobin A1c % Calcium Triglycerides Cholesterol LDL Cholesterol, Calc HDL Cholesterol Urine Color STRAW Urine Appearance CLEAR Urine pH 6.0 Ur Specific [place] <= 1.005 Urine Protein 2+ H Urine Glucose (UA) 250 H Urine Ketones NEG Urine Blood TRACE Urine Nitrite NEG Ur Leukocyte Esterase NEG Urine RBC 0-2 Urine WBC 0-2 Ur Squamous Epith Cells 1+ Amorphous Sediment TRACE Urine Bacteria NONE COVID-19 ([facility]) COVID-19 Clin Com 03/31/21 03/31/21 04/01/21 22:40 23:57 01:29 WBC RBC Hgb Hct MCV MCH MCHC RDW Plt Count MPV Immature Gran % (Auto) Neut % (Auto) Lymph % (Auto) Dixie % (Auto) Eos % (Auto) Baso % (Auto) Lymph # (Auto) Dixie # (Auto) Eos # (Auto) Baso # (Auto) Abs Immat Gran (auto) Absolute Neuts (auto) Absolute Nucleated RBC Nucleated RBC % (auto) Sodium Potassium Chloride Carbon Dioxide Anion Gap BUN Creatinine Estim Creat Clear Calc Estimated GFR POC Glucose 99 69 126 H Random Glucose Estimat Average Glucose Hemoglobin A1c % Calcium Triglycerides Cholesterol LDL Cholesterol, Calc HDL Cholesterol Urine Color Urine Appearance Urine pH Ur Specific [place] Urine Protein Urine Glucose (UA) Urine Ketones Urine Blood Urine Nitrite Ur Leukocyte Esterase Urine RBC Urine WBC Ur Squamous Epith Cells Amorphous Sediment Urine Bacteria COVID-19 ([facility]) COVID-19 Clin Com 04/01/21 04/01/21 04/01/21 06:25 06:25 07:37 WBC 9.1 RBC 3.72 L Hgb 11.3 L Hct 33.5 L MCV 90.1 MCH 30.4 MCHC 33.7 RDW 12.7 Plt Count 310 MPV 10.1 Immature Gran % (Auto) 0.4 Neut % (Auto) 59.1 Lymph % (Auto) 25.5 Dixie % (Auto) 9.6 Eos % (Auto) 4.5 H Baso % (Auto) 0.9 Lymph # (Auto) 2.3 Dixie # (Auto) 0.9 Eos # (Auto) 0.4 Baso # (Auto) 0.1 Abs Immat Gran (auto) 0.04 H Absolute Neuts (auto) 5.3 Absolute Nucleated RBC 0.000 Nucleated RBC % (auto) 0.0 Sodium 140 Potassium 3.8 Chloride 104 Carbon Dioxide 25 Anion Gap 15 BUN 16 Creatinine 1.13 Estim Creat Clear Calc 65.0 Estimated GFR > 60 POC Glucose 148 H Random Glucose 170 H D Estimat Average Glucose Hemoglobin A1c % Calcium 8.7 D Triglycerides 197 Cholesterol 206 LDL Cholesterol, Calc 133 HDL Cholesterol 34 D Urine Color Urine Appearance Urine pH Ur Specific [place] Urine Protein Urine Glucose (UA) Urine Ketones Urine Blood Urine Nitrite Ur Leukocyte Esterase Urine RBC Urine WBC Ur Squamous Epith Cells Amorphous Sediment Urine Bacteria COVID-19 ([facility]) COVID-19 Clin Com 04/01/21 11:05 WBC RBC Hgb Hct MCV MCH MCHC RDW Plt Count MPV Immature Gran % (Auto) Neut % (Auto) Lymph % (Auto) Dixie % (Auto) Eos % (Auto) Baso % (Auto) Lymph # (Auto) Dixie # (Auto) Eos # (Auto) Baso # (Auto) Abs Immat Gran (auto) Absolute Neuts (auto) Absolute Nucleated RBC Nucleated RBC % (auto) Sodium Potassium Chloride Carbon Dioxide Anion Gap BUN Creatinine Estim Creat Clear Calc Estimated GFR POC Glucose 128 H Random Glucose Estimat Average Glucose Hemoglobin A1c % Calcium Triglycerides Cholesterol LDL Cholesterol, Calc HDL Cholesterol Urine Color Urine Appearance Urine pH Ur Specific [place] Urine Protein Urine Glucose (UA) Urine Ketones Urine Blood Urine Nitrite Ur Leukocyte Esterase Urine RBC Urine WBC Ur Squamous Epith Cells Amorphous Sediment Urine Bacteria COVID-19 ([facility]) COVID-19 Clin Com Progress Note: A&P Assessment and plan (1) Acute CVA (cerebrovascular accident): Status: Acute Assessment and Plan: On clinical grounds he appears to have a right cerebellar infarct. He has multiple stroke risk factors. Recommendation: MRI of the brain. If for some reason he is unable to have an MRI then a follow-up CT scan of the brain with thin cuts through the posterior fossa. PT OT. Continue aspirin. Cardiac monitoring for atrial fibrillation. Echocardiogram. Because this is a posterior fossa infarct, close observation should be kept for deterioration in his level of alertness in which case his stat CT should be done to make sure that there is no edema developing in the cerebellum that would require surgical intervention. Assessment and Plan: He is improving clinically. He does not appear to be at any risk of posterior fossa edema and need for decompression. I would however go ahead and do the MRI of the brain. Fall Risk Details Current Medications: Current Medications Acetaminophen (Acetaminophen 325 Mg Tablet) 650 mg PO Q6H PRN PRN Reason: Pain, Mild (Pain Scale 1-3) Amlodipine Besylate (Amlodipine Besylate 10 Mg Tablet) 10 mg PO DAILY [facility]; Protocol Aspirin (Aspirin Enteric Coated 81 Mg Tablet.Dr) 81 mg PO DAILY [facility] Last Admin: 04/01/21 08:32 Dose: 81 mg Documented by: Atorvastatin Calcium (Atorvastatin Calcium 80 Mg Tablet) 80 mg PO BEDTIME [facility] Last Admin: 04/01/21 00:01 Dose: 80 mg Documented by: Dextrose (Dextrose 50 % 25 Gm/50 Ml Vial) 25 gm IVPUSH Q15M PRN; Protocol PRN Reason: per Hypoglycemia Standing Ord. Docusate Sodium (Docusate Sodium 100 Mg Capsule) 100 mg PO DAILY PRN PRN Reason: Constipation Enoxaparin Sodium (Enoxaparin Sodium 40 Mg/0.4 Ml Syringe) 40 mg SUBCUT Q24H [facility] Last Admin: 03/31/21 17:16 Dose: 40 mg Documented by: Glucose (Glucose Gel 15 Gm Gel..Gram.) 15 gm PO Q15M PRN; Protocol PRN Reason: per Hypoglycemia Standing Ord. Hydrochlorothiazide (Hydrochlorothiazide 12.5 Mg Tablet) 12.5 mg PO DAILY [facility] Insulin Human Lispro (Insulin Lispro 100 Unit/Ml 3 Ml Vial) 0 unit SUBCUT QIDACHS [facility]; Protocol Last Admin: 04/01/21 12:48 Dose: Not Given Documented by: Lisinopril (Lisinopril 20 Mg Tablet) 20 mg PO DAILY [facility] Nicotine (Nicotine 21 Mg Patch.Td24) 21 mg TRANSDERMA DAILY [facility] Last Admin: 04/01/21 08:37 Dose: Not Given Documented by: Omeprazole (Omeprazole 20 Mg Capsule.Dr) 20 mg PO DAILY@0630 [facility] Last Admin: 04/01/21 06:55 Dose: 20 mg Documented by: Ondansetron HCl (Ondansetron Hcl 4 Mg/2 Ml Vial) 4 mg IVPUSH Q8H PRN PRN Reason: Nausea and Vomiting Sodium Chloride (0.9 % Sodium Chloride Flush 3 Ml Syringe) 3 ml IVFLUSH QSHIFT [facility] Last Admin: 04/01/21 09:03 Dose: Not Given Documented by: Time Spent With Patient Time: Total time spent is greater than 50% in coordination of care (as do cumented) at patient's floor/unit and/or counseling patient: Time with patient: 15 - 24 minutes Procedures Date of Service Date of Service: 04/01/21 Quality Stroke Does the patient have a stroke diagnosis?: Yes Reason for No Anti-thrombotic by Day Two: N/A - Med Ordered VTE Prior VTE?: No VTE Risk Level:: Medical - moderate - high VTE Device Contraindication: N/A - Device Ordered VTE Drug Contraindication: N/A - Med Ordered
[2021-04-01 16:26] LABS: Glucose, Whole Blood 156 mg/dL (60-115)
[2021-04-01] MEDS: amLODIPine Besylate 10 MG TABLET PO (16:56)
[2021-04-01] MEDS: 0.9 % Sodium Chloride Flush 3 ML SYRINGE IVFLUSH ×2 (17:04→20:11)
[2021-04-01] MEDS: Enoxaparin Sodium 40 MG/0.4 ML SYRINGE SUBCUT (18:21)
[2021-04-01 20:43] LABS: Glucose, Whole Blood 121 mg/dL (60-115)
[2021-04-02 03:34] VITALS: BP 168/66; RESP 18; TEMP 36.9; O2SAT 99
[2021-04-02] MEDS: Omeprazole 20 MG CAPSULE.DR PO (05:51)
[2021-04-02 07:34] LABS: Glucose, Whole Blood 123 mg/dL (60-115)
[2021-04-02 08:43] VITALS: BP 168/66; O2SAT 99
--- NOTE | 2021-04-02 09:30 | CA_ITS ---
Transthoracic Echocardiogram Patient (Last, First, Middle): Jaime Tomlinson, Gender: Male Date of : 1955 Age: 66 Procedure Date: 04/02/2021 Procedure Type: Transthoracic Echocardiogram [place] [facility] [place] Height: 162.56 cm Weight: 85.28 kg BSA: 1.91 m2 Heart Rate: bpm BP: 160 / 66 mmHg Computer System Validation Specialist: Referring MD: Mady GARRETT Symptoms: stroke protocol Study Quality: Fair ECG Rhythm: Sinus Conclusions: - The left ventricular systolic function is normal. The calculated ejection fraction is 70% by biplane method. - Bubble study suboptimal- grossly, no evidence of inter-atrial shunt. - No obvious valvular pathology seen on this study. Findings Left Ventricle Normal left ventricular cavity size. There is mildly increased left ventricular wall thickness. The left ventricular systolic function is normal. The calculated ejection fraction is 70% by biplane method. There is no evidence of regional wall motion abnormalities. E/E prime ratio is between 8 and 15 consistent with indeterminate filling pressures. Evidence suggests grade I (mild) diastolic dysfunction. Right Ventricle Normal right ventricular cavity size and systolic function. Atria Both atria are normal in size. Bubble study suboptimal- grossly, no evidence of inter-atrial shunt. Aortic Valve The aortic valve was not well visualized. There is no aortic valve stenosis. There is no aortic valve regurgitation. Mitral Valve The mitral valve appears normal. There is trace mitral valve regurgitation. There is no mitral valve stenosis. Pulmonic Valve The pulmonic valve was not well visualized. Tricuspid Valve The tricuspid valve was not well visualized. There is trace tricuspid valve regurgitation. The pulmonary artery systolic pressure is normal. Great Vessels The asc aorta is normal in size. Venous The inferior vena cava is normal in size and collapses greater than 50% with inspiration. Pericardium/Pleural There is no evidence of pericardial effusion. Prior Study Comparison No prior study available for comparison. Recommendations, Care & Conclusions No obvious valvular pathology seen on this study. Measurements 2D Linear Measurements IVSd: 1.25 0.6-0.9/0.6-1.0 cm LVIDd: 4.56 3.9-5.3/4.2-5.9 cm LVIDd Index: 2.39 2.4-3.2/2.2-3.1 cm/m2 LVIDs: 2.91 2.0-3.6 cm LVPWd: 1.22 0.7-1.1 cm Ao Root: 2.80 2.1-3.5 cm LA Diam: 3.90 2.7-3.8/3.0-4.0 cm LAIDs Index: 2.04 1.5-2.3 cm/m2 LV Mass: 262.71 67-162/88-224 g LV Mass Index: 137.55 43-95/49-115 g/m2 LVOT Diam: 2.00 3.0+(-)1.3 cm 2D Systolic Function EF 4C: 70.70 >55% EF 2C: 65.40 >55% EF BiP: 70.20 >55% Mitral Valve MV Pk E: 0.79 MV PK A: 1.25 MV Decel Time: 192.00 E/A: 0.60 E'Lateral: 6.53 E'Medial: 6.31 E/E' Med: 12.50 E/E' Lat: 12.10 PHT: 56.00 MVA PHT: 3.93 Decel Polk: 4.10 Aortic Valve AoV Pk Jayro: 1.26 AoV Mn Jayro: 0.72 AoV VTI: 0.25 AoV Pk Grad: 6.00 Aov Mn Grad: 3.00 MICHEAL Cont.VTI: 2.47 LVOT LVOT Pk Jayro: 0.82 LVOT Mn Jayro: 0.55 LVOT VTI: 0.20 LVOT Pk Grad: 3.00 LVOT Mn Grad: 1.00 LVOT Diam: 2.00 LVOT Area: 3.14 Diastolic Function MV Pk E: 0.79 MV Pk A: 1.25 E/A: 0.60 E'Medial: 6.31 E/E' Med: 12.50 E' Laterial: 6.53 E/E' Lat: 12.10 Tricuspid Valve TR Pk Jayro: 1.92 TR Pk Grad: 15.00 Great Vessels Aorta Ao Root-2D: 2.80 2.0-3.7 cm Ao Asc: 3.00 2.1-3.4 cm Pulmonary Valve PV Pk Jayro: 1.02 Peak PV Grad: 4.00 Updated in Other Vendor System with Status of Final Edu Walton MD electronically signed on 04/02/2021 11:47:36 AM with status of Final
--- NOTE | 2021-04-02 09:39 | PC.NURSE ---
Patient's BP elevated this am, patient still NPO, Dr Fortune aware, speech eval ordered to be done this am, holding PO meds pending speech eval.
[2021-04-02 11:29] VITALS: BP 171/75; PULSE 92; RESP 18; TEMP 36.4; O2SAT 99
[2021-04-02] MEDS: 0.9 % Sodium Chloride Flush 3 ML SYRINGE IVFLUSH (11:29)
[2021-04-02 11:30] VITALS: BP 171/75; PULSE 94
[2021-04-02] MEDS: lisinopriL 20 MG TABLET PO (11:30)
[2021-04-02] MEDS: Aspirin Enteric Coated 81 MG TABLET.DR PO (11:30)
[2021-04-02 11:31] VITALS: BP 171/75; PULSE 85
[2021-04-02] MEDS: amLODIPine Besylate 10 MG TABLET PO (11:31)
[2021-04-02] MEDS: hydroCHLOROthiazide 12.5 MG TABLET PO (11:31)
[2021-04-02 11:36] LABS: Glucose, Whole Blood 152 mg/dL (60-115)
--- NOTE | 2021-04-02 12:48 | HO.PM.IMPN ---
Subjective Subjective Date of Service: 04/02/21 Interval History: cc: right sided weakness interval history: still feeling off balanced Cardiovascular Cardiovascular: Reports no additional cardiovascular complaints Respiratory Respiratory: Reports no additional respiratory complaints Gastrointestinal Gastrointestinal: Reports no additional gastrointestinal complaints Physical Exam Vital Signs: Vital Signs: Last Vital Signs Temp 97.5 F 04/02/21 11:29 Pulse 85 04/02/21 11:31 Resp 18 04/02/21 11:29 BP 171/75 H 04/02/21 11:31 Pulse Ox 99 04/02/21 11:29 Body Mass Index 32.2 Const General:?alert and awake Nutritional Appearance:?well nourished Orientation/consciousness:?patient oriented x3 HENMT Head:?Yes normocephalic and Yes atraumatic Eyes Sclerae:?sclerae normal Resp Effort & Inspection:?normal respiratory effort and no respiratory distress Auscultation:?clear to auscultation bilaterally Cardio Rate:?regular rate Rhythm:?regular rhythm GI Palpation (GI):?Soft to palpation and nontender Neuro Gait exam (Neuro):?Ataxic gait present (Tendency to fall to the right has improved) Objective Data Active Medications Acetaminophen (Acetaminophen 325 Mg Tablet) 650 mg PO Q6H PRN PRN Reason: Pain, Mild (Pain Scale 1-3) Amlodipine Besylate (Amlodipine Besylate 10 Mg Tablet) 10 mg PO DAILY [facility]; Protocol Last Admin: 04/02/21 11:31 Dose: 10 mg Documented by: DOUG Aspirin (Aspirin Enteric Coated 81 Mg Tablet.) 81 mg PO DAILY [facility] Last Admin: 04/02/21 11:30 Dose: 81 mg Documented by: DOUG Atorvastatin Calcium (Atorvastatin Calcium 80 Mg Tablet) 80 mg PO BEDTIME [facility] Last Admin: 04/01/21 20:08 Dose: 80 mg Documented by: JOHN Dextrose (Dextrose 50 % 25 Gm/50 Ml Vial) 25 gm IVPUSH Q15M PRN; Protocol PRN Reason: per Hypoglycemia Standing Ord. Docusate Sodium (Docusate Sodium 100 Mg Capsule) 100 mg PO DAILY PRN PRN Reason: Constipation Enoxaparin Sodium (Enoxaparin Sodium 40 Mg/0.4 Ml Syringe) 40 mg SUBCUT Q24H [facility] Last Admin: 04/01/21 18:21 Dose: 40 mg Documented by: LUIZ Glucose (Glucose Gel 15 Gm Gel..Gram.) 15 gm PO Q15M PRN; Protocol PRN Reason: per Hypoglycemia Standing Ord. Hydrochlorothiazide (Hydrochlorothiazide 12.5 Mg Tablet) 12.5 mg PO DAILY [facility] Last Admin: 04/02/21 11:31 Dose: 12.5 mg Documented by: DOUG Insulin Human Lispro (Insulin Lispro 100 Unit/Ml 3 Ml Vial) 0 unit SUBCUT QIDACHS [facility]; Protocol Last Admin: 04/02/21 07:37 Dose: Not Given Documented by: DOUG Non-Admin Reason: No Insulin Coverage Lisinopril (Lisinopril 20 Mg Tablet) 20 mg PO DAILY [facility] Last Admin: 04/02/21 11:30 Dose: 20 mg Documented by: DOUG Nicotine (Nicotine 21 Mg Patch.Td24) 21 mg TRANSDERMA DAILY [facility] Last Admin: 04/02/21 11:35 Dose: Not Given Documented by: DOUG Non-Admin Reason: Patient Refused Omeprazole (Omeprazole 20 Mg Capsule.) 20 mg PO DAILY@0630 [facility] Last Admin: 04/02/21 05:51 Dose: 20 mg Documented by: ANT Ondansetron HCl (Ondansetron Hcl 4 Mg/2 Ml Vial) 4 mg IVPUSH Q8H PRN PRN Reason: Nausea and Vomiting Sodium Chloride (0.9 % Sodium Chloride Flush 3 Ml Syringe) 3 ml IVFLUSH QSHIFT [facility] Last Admin: 04/02/21 11:29 Dose: 3 ml Documented by: DOUG Labs CBC & Chem 7: 04/01/21 06:25 04/01/21 06:25 Labs: Laboratory Results - last 24 hr 04/01/21 04/01/21 04/02/21 16:14 20:33 07:30 POC Glucose 156 H 121 H 123 H 04/02/21 11:29 POC Glucose 152 H Assessment and Plan (1) Acute CVA (cerebrovascular accident): Status: Acute Assessment and Plan: This is a 66-year-old male with a history of diabetes, hypertension, dyslipidemia, deafness, tobacco use who presents to the emergency department with 24 hours of unsteady gait acute left lateral thalamic CVA Symptoms ongoing for 24 hours, out of window for tPA Risk factors include: smoking, HTN, HLD, DM Brain CT unremarkable. CTA head/neck with no large vessel occlusions, <50% stenosis of IC echo unremarkable PT/OT evaluation recommending acute rehab started on aspirin, high intensity statin Smoking cessation has been advised Tobacco dependence NRT Diabetes episode of hypoglycemia 03/31. likely r/t to not eating for long period of time. pt asymptomatic Hba1c 7.5 home medications on hold SSI, POCs Hypertension BP meds initially held to allow for permissive hypertension resumed norvasc, lisinopril, HCTZ gerd continue omeprazole DVT prophylaxis -Lovenox Code status-full code Quality Stroke Does the patient have a stroke diagnosis?: Yes Reason for No Anti-thrombotic by Day Two: N/A - Med Ordered VTE Prior VTE?: No VTE Risk Level:: Medical - moderate - high VTE Device Contraindication: N/A - Device Ordered VTE Drug Contraindication: N/A - Med Ordered
[2021-04-02] MEDS: Insulin Lispro 100 UNIT/ML 3 ML VIAL SUBCUT (12:58)
--- NOTE | 2021-04-02 15:14 | PM.DS ---
DS: Providers Provider Date of Service: 04/02/21 Date of admission: 03/31/21 16:21 Primary care physician: Love Anders NP Consults: 03/31/21 16:24 Consult to Neurology Routine Consulting Provider: Dusty Mckeon Reason for consultation: ataxia Has provider been notified: No DS: Diagnosis Discharge Diagnosis (1) Acute CVA (cerebrovascular accident): Status: Acute (2) High cholesterol: Status: Acute (3) Diabetes: Status: Acute (4) HTN (hypertension): Status: Acute DS: Summary Hospital Course Hospital Course: Patient was admitted for acute CVA. His MRI showed left lateral thalamus acute CVA. His CTA of the head and neck showed less than 50% stenosis bilaterally of the internal carotids, echo was unremarkable, no atrial fibrillation seen on tele. Patient's Lipitor was increased from 20 mg to 80 mg, he was continued on aspirin and will be started on Plavix for 30 days after which he can discontinue one antiplatelet. He was seen by physical therapy recommended acute rehab. Patient has already had fairly significant improvement in his ataxia Time Spent with Patient Time attestation: Total time spent providing and/or coordinating discharge services: Discharge coordination time: Greater than 30 minutes Quality: Stroke Does the patient have a stroke diagnosis?: No Physical Exam Vital Signs: Vital Signs: Last Vital Signs Temp 97.5 F 04/02/21 11:29 Pulse 85 04/02/21 11:31 Resp 18 04/02/21 11:29 BP 171/75 H 04/02/21 11:31 Pulse Ox 99 04/02/21 11:29 Body Mass Index 32.2 Const General:?alert and awake Nutritional Appearance:?well nourished Orientation/consciousness:?patient oriented x3 HENMT Head:?Yes normocephalic and Yes atraumatic Eyes Sclerae:?sclerae normal Resp Effort & Inspection:?normal respiratory effort and no respiratory distress Auscultation:?clear to auscultation bilaterally Cardio Rate:?regular rate Rhythm:?regular rhythm GI Palpation (GI):?Soft to palpation and nontender Neuro Gait exam (Neuro):?Ataxic gait present (Tendency to fall to the right has improved) DS: Data Data Completed and Pending Labs on day of discharge: Laboratory Results - last 24 hr 04/01/21 04/01/21 04/02/21 16:14 20:33 07:30 POC Glucose 156 H 121 H 123 H 04/02/21 11:29 POC Glucose 152 H Discharge Plan Discharge Patient Disposition: Xfer Other Discharge Diagnosis: cva Referrals: [facility] [Other] - 1 Week Love Anders NP [Primary Care Provider] - 1 Week Discharge Medications: New atorvastatin 80 mg Tablet 80 mg PO BEDTIME Qty: 30 RF: 0 clopidogrel [Plavix] 75 mg tablet 75 mg PO DAILY Qty: 30 RF: 0 Continued lisinopril-hydrochlorothiazide 20-12.5 mg tablet 1 tab PO DAILY RF: 0 aspirin 81 mg tablet,delayed release (DR/EC) 1 tab PO DAILY RF: 0 amlodipine 10 mg tablet 1 tab PO DAILY RF: 0 metformin 1,000 mg tablet 1 tab PO BID RF: 0 glimepiride 4 mg tablet 1 tab PO QAM RF: 0 omeprazole 20 mg capsule,delayed release(DR/EC) 1 cap PO DAILY RF: 0 ergocalciferol (vitamin D2) 1,250 mcg (50,000 unit) capsule 1 cap PO QWEEK RF: 0 Trulicity 1.5 mg/0.5 mL pen injector 1.5 mg subcut QWEEK RF: 0 Discontinued atorvastatin 20 mg tablet 1 tab PO DAILY RF: 0 Discharge Orders: Discharge Order (Routine); Ordered 04/02/21 Ordered By: Emmett Singh Diet: advance to usual diet Activity on Discharge: As tolerated Stand Alone Forms: Patient Portal Discharge page Care Plan Goals: recovery, prevent further stroke Health Concerns: cva Plan of Treatment: increase lipitor to 80mg qhs, added second antiplatelet (plavix 75mg) for 30 days, then can take one antiplatelet off. monitor bp and adjust meds accordingly Assessment: see above
--- NOTE | 2021-04-02 15:16 | MHC.CM.PN ---
pt will be dcd today at 4:30 to [facility] at [address] h[address] son jodi [phone] notified of dc
--- NOTE | 2021-04-02 15:32 | MHC.STROKE ---
03/31/21 1233 EMS PRE-NOTIFIED RIGHT LEG WEAKNESS S/P FALL X2 AND LEANING TO THE RIGHT.ONSET OF SYMPTOMS 03/30/21 1500. NIHSS = 1, RIGHT LL DRIFT. CT HEAD DONE, NO BLEED. SEE RADIOLOGY REPORT. TODAY AT 1445 I MET WITH THE PATIENT (AFTER REVIEWING THE CASE WITH DR JOYA). WE HAD A GROUP EDUCATION MEETING IN THE ROOM WHICH INCLUDED THE PRIMARY NURSE, HOSPITALIST DR SMITHERASMO, THE SON MICHELLE, THE PATIENT AND THE VIDEO SIGN-STRIPPER PRELIMINARY. WE REVIEWED THE DIAGNOSIS, CAUSES/ETIOLOGY, RISK FACTORS, COMPLIANCE WITH MEDICATIONS, NEED FOR REHAB, PROGNOSIS. I SUPPORTED THE EDUCATION BY PROVIDING THE STROKE BOOKLET, POWER POINT SLIDES, MRI IMAGE OF THE LOCATION OF THE STROKE. HE HAD THE OPPORTUNITY TO ASK QUESTIONS. BOTH THE SON AND PATIENT EXPRESSED THAT WE HAD ANSWERED ALL OF THEIR QUESTIONS. THEY ASKED ABOUT THE LOCATION OF [facility] AND I DID RELAY WHERE IT WAS LOCATED AND DESCRIBED THE FACILITY. THEY ARE REQUESTING 2 ADDITIONAL COPIES OF THE DISCHARGE INSTRUCTIONS/MEDICATIONS. I DID RELAY THIS TO THE MINE ADMINISTRATOR SUPERVISOR AND RN. THEY WILL PROVIDE THIS.
== END 2021-04-02 17:00 | disposition other institution (70) | DRG 65 ==
LOC: HO.ED 14:39 → HO.EDOVER 16:34 → HO.IMC 22:52
PROVIDERS: Admitting Provider Physician Assistant Medical; Emergency Provider Emergency Medicine Emergency Medical Services; PCP Nurse Practitioner Family; Visit Provider Internal Medicine
DX: I63.89 Other cerebral infarction (principal); G81.91 Hemiplegia, unspecified affecting right dominant side; R29.701 NIHSS score 1; F17.210 Nicotine dependence, cigarettes, uncomplicated; I10 Essential (primary) hypertension; K21.9 Gastro-esophageal reflux disease without esophagitis; E11.649 Type 2 diabetes mellitus with hypoglycemia without coma; R27.0 Ataxia, unspecified; Z20.822 Contact with and (suspected) exposure to COVID-19; Z71.6 Tobacco abuse counseling; Z79.82 Long term (current) use of aspirin; Z79.84 Long term (current) use of oral hypoglycemic drugs; Z79.899 Other long term (current) drug therapy
CPT/HCPCS: 36415; 70450; 70496; 70498; 70551; 71045; 80048; 80061; 81001; 82947; 83036; 85025; 85610; 87635; 93306; 97162; 97166; 99285; J1650; Q9967

== ENCOUNTER 2021-12-06 12:58 | Outpatient (REF) | payer MEDICARE, OTHER, SELFPAY ==
--- NOTE | 2021-12-06 17:56 | MHC.AU.AHA ---
Adult Audiological Evaluation Date of Visit: 12/18/21 Automotive Salesperson Used: ASL- In Person Reason for Appointment: Audiological evaluation to determine if there has been a change in hearing. Mr. 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 He uses hearing aids binaurally and communicates orally, with ASL, and with lip reading. He currently uses his own 2013 hearing aid in his right ear, and a loaner device from our clinic in the left ear, which has been on loan to him for 3.5 years at this time. He is interested in pursuing new hearing aids. He notes that since his last visit he has experienced a mild stroke. 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 No speech understanding abilities unless visual cues are provided. Medical History: Medical History: Diabetes, Stroke, High Blood Pressure Medical History: Mild stroke 04/03/2021 Allergies: NKA Medication List: acetaminophen, amlodipine, aspirin, atorvastatin, cefazolin, chlorhexidine gluconate, cholecalciferol, ciclopirox, docusate sodium, dulaglutide, vitamin D2, furosemide, gabapentin, glimepiride, hydrochlorothiazide, ibuprofen, lisinopril, metformin, pantoprazole, nicoderm, multivitamin, methyl salicylate-menthol ointment Hearing Instrument History- Right Ear: Gift Officer: [employer]) Model: AVELINA Q50-UP Serial Number: [id number] Battery Size: 675 Repair Warranty: Loss and Damage Warranty: Dispensed By: [facility] Date of Fitting: ~2013 Hearing Instrument History- Left Ear: Gift Officer: Phonak Model: Currently using a loaner Phonak Avelina B90-UP (#[id number]). Loaned to patient on 07/16/2018. Otoscopy: Right Ear: Unremarkable Left Ear: Unremarkable Hearing Evaluation: Transducer(s) Used: Insert Earphones, Bone Conduction Method: Conventional Audiometry Stimuli Used: Pure Tones Right Ear: Description of Hearing: Severe to profound sensorineural hearing loss from 250-8000 Hz. Left Ear: Description of Hearing: Severe to profound sensorineural hearing loss from 250-8000 Hz. Speech Recognition Threshold (SRT): Method Used: Not performed at today's visit. Right Ear: CNT - no speech understanding without visual cues Left Ear: CNT - no speech understanding without visual cues Word Discrimination: Method: Not performed at today's visit. Right Ear: CNT - no speech understanding without visual cues Left Ear: CNT - no speech understanding without visual cues Comparison: Compared to the most recent evaluation: Hearing is stable. Recommendations: Audiological re-evaluation in one year. Patient plans to contact [facility]. Updated amplification is highly recommended. Provided Mr. Tomlinson with contact information for [facility] and encouraged him to contact them as soon as possible. Advised that he has to make the initial contact with [facility] in order to determine his eligibility for services. Diagnosis: Primary Diagnosis: H90.3 Bilateral Sensorineural Hearing Loss Services Performed: [facility] (CPT 65638) Signature: Provider: Farnaz Knox, CCC-A
== END 2021-12-06 12:59 | disposition home or self-care (01) ==
LOC: HO.SH 12:58
PROVIDERS: Visit Provider Nurse Practitioner Family
DX: Z46.1 Encounter for fitting and adjustment of hearing aid (principal); H90.3 Sensorineural hearing loss, bilateral
CPT/HCPCS: 92553

== ENCOUNTER 2022-06-27 09:52 | Outpatient (REF) | payer SELFPAY | END 2022-06-27 09:53 | disposition home or self-care (01) | LOC: HO.HAP 09:52 | PROVIDERS: Visit Provider Nurse Practitioner Family | DX: Z13.89 Encounter for screening for other disorder (principal) ==

== ENCOUNTER 2022-12-31 12:38 | Outpatient (REF) | payer SELFPAY ==
--- NOTE | 2022-12-31 14:54 | MHC.AU.HA3 ---
Hearing Instrument Follow-Up- Binaural Date of Visit: 12/31/22 Right Ear: Make, Model, Color, Serial Number: Cristopher Quan P70-UP SN: [id number] Color: Champagne Control Board Operator Repair Warranty: 09/01/2025 Control Board Operator Loss and Damage Warranty: 09/01/2025 [facility] Service Plan: 06/24/2023 Battery Size: 675 Earmold/Dome/CShell/SlimTip:Microsonic M2000 3/4 shell no vent Dispensed By: [facility] Date of Fittin06/24/2022 Left Ear: Make, Model, Color, Serial Number: Cristopher Quan P70-UP SN: [id number] Color: Zenagne Control Board Operator Repair Warranty: 09/01/2025 Control Board Operator Loss and Damage Warranty: 09/01/2025 [facility] Service Plan: 06/24/2023 Battery Size: 675 Earmold/Dome/CShell/SlimTip: Microsonic M2000 canal shell, no vent Dispensed By: [facility] Date of Fittin06/24/2022 Follow-Up Summary: Jaime reported that he has been recently getting more feedback from his hearing aids, the left ear mold has not been fitting properly, and he is having a harder time understanding speech particularly in adverse listening environments. Upon inspection, tubing was extremely hard, filled with moisture, and pulling on ear molds. Cleaned both hearing aids and ear molds and ran through dehumidifier. Replaced tubing. Noted improvement in feedback as well as comfort and sound quality in office. Did not make any further programming adjustments at this time as Jaime was happy with sound quality after tubing change. Advised of routine tubing changes every 3-6 months. Recommendations: Hearing instrument maintenance in 6 months, or sooner if needed. Diagnosis Code(s): Primary Diagnosis: H90.3 Bilateral Sensorineural Hearing Loss Signature: Provider: Tammy Chase, [facility]
== END 2022-12-31 12:39 | disposition home or self-care (01) ==
LOC: HO.HAP 12:38
PROVIDERS: Visit Provider Nurse Practitioner Family
DX: Z13.89 Encounter for screening for other disorder (principal)

== ENCOUNTER 2024-03-12 10:51 | Outpatient (REF) | payer SELFPAY | END 2024-03-12 10:52 | disposition home or self-care (01) | LOC: HO.HAP 10:51 | PROVIDERS: Visit Provider Internal Medicine | DX: Z46.1 Encounter for fitting and adjustment of hearing aid (principal); H90.3 Sensorineural hearing loss, bilateral | CPT/HCPCS: 92593; V5266 ==

== ENCOUNTER 2024-05-21 09:53 | Outpatient (REF) | payer SELFPAY ==
--- NOTE | 2024-05-21 15:36 | MHC.AU.HA3 ---
Hearing Instrument Follow-Up- Binaural Date of Visit: 05/21/24 Personnel Psychologist Used: ASL by video. Right Ear: Make, Model, Color, Serial Number: Cristopher Quan P70-UP SN: [id number] Color: Champagne Route Driver Coin Machines Repair Warranty: 09/01/2025 Route [employer] Loss and Damage Warranty: 09/01/2025 [facility] Service Plan: 06/24/2023 Battery Size: 675 Earmold/Dome/CShell/SlimTip:Microsonic M2000 3/4 shell no vent Dispensed By: [facility] Date of Fittin06/24/2022 Left Ear: Make, Model, Color, Serial Number: Cristopher Quan P70-UP SN: [id number] Color: Gilliane Route Driver Coin Machines Repair Warranty: 09/01/2025 Route [employer] Loss and Damage Warranty: 09/01/2025 [facility] Service Plan: 06/24/2023 Battery Size: 675 Earmold/Dome/CShell/SlimTip: Microsonic M2000 canal shell, no vent Dispensed By: [facility] Date of Fittin06/24/2022 Follow-Up Summary: Jaime is here today with concerns about feedback. He wonders if his earmolds are too short. Cleaned and checked aids, found tubes hard and tone hooks loose. Cleaned earmolds. Re-tubed. Replaced tone hooks. Listening check positive. Earmold canals appear to be of sufficient length. Ran feedback manager home, no significant loss of gain noted. Advised Jaime that his feedback issues were likely due to the status of tone hooks and tubes. Advised new earmolds could be considered if problems persist despite recent maintenance, quoted $245. Recommendations: Recommendations: Hearing instrument follow-up or maintenance as needed. Patient will call if problems persist. Diagnosis Code(s): Primary Diagnosis: H90.3 Bilateral Sensorineural Hearing Loss Signature: Provider: Tammy Blackman, [facility]
== END 2024-05-21 09:54 | disposition home or self-care (01) ==
LOC: HO.HAP 09:53
PROVIDERS: Visit Provider Specialist
DX: Z46.1 Encounter for fitting and adjustment of hearing aid (principal); H90.3 Sensorineural hearing loss, bilateral
CPT/HCPCS: 92593

== ENCOUNTER 2024-09-10 10:55 | Outpatient (REF) | payer SELFPAY ==
--- NOTE | 2024-09-10 12:18 | MHC.AU.HA3 ---
Hearing Instrument Follow-Up- Binaural Date of Visit: 09/10/24 Right Ear: Make, Model, Color, Serial Number: Cristopher Quan P70-UP SN: [id number] Color: Champagne Non Destructive Testing Supervisor Repair Warranty: 09/01/2025 Non Destructive Testing Supervisor Loss and Damage Warranty: 09/01/2025 [facility] Service Plan: 06/24/2023 Battery Size: 675 Earmold/Dome/CShell/SlimTip:Microsonic M2000 3/4 shell no vent Dispensed By: [facility] Date of Fittin06/24/2022 Left Ear: Make, Model, Color, Serial Number: Cristopher Quan P70-UP SN: [id number] Color: Zenagne Non Destructive Testing Supervisor Repair Warranty: 09/01/2025 Non Destructive Testing Supervisor Loss and Damage Warranty: 09/01/2025 [facility] Service Plan: 06/24/2023 Battery Size: 675 Earmold/Dome/CShell/SlimTip: Microsonic M2000 canal shell, no vent Dispensed By: [facility] Date of Fittin06/24/2022 Follow-Up Summary: Jaime is here for tubing change. evaporative cooler installer Lana present. Reports tubes have gotten hard, getting feedback, tonehooks loose. Cleaned aids and earmolds, ran through dehumidifier, replaced tonehooks and tubing. Listening check positive. Recommendations: Recommendations: Hearing instrument follow-up or maintenance as needed. Diagnosis Code(s): Primary Diagnosis: H90.3 Bilateral Sensorineural Hearing Loss Signature: Provider: Tammy Blackman, [facility]
== END 2024-09-10 10:56 | disposition home or self-care (01) ==
LOC: HO.HAP 10:55
PROVIDERS: Visit Provider Pediatrics
DX: Z46.1 Encounter for fitting and adjustment of hearing aid (principal); H90.3 Sensorineural hearing loss, bilateral
CPT/HCPCS: 92593; V5266

== ENCOUNTER 2025-01-26 11:16 | Outpatient (REF) | payer SELFPAY ==
--- OUTSIDE RECORDS SUMMARY | 2025-01-26 12:19 | XMS_ITS | Encounter Summary ---
Author Organization [facility] Address [address] [place] [address] Phone Care Team Providers Care Toe Trimmer Name Role Phone Mike Sanchez DO Primary Care Provider Mike Sanchez DO Unavailable Encounter Details Date Type Department Care Team (Late st Contact Info) Description 11/27/2023 Procedure Pass [facility], [address] [address] Social History Tobacco Use Types Packs/Day Years Used Date Smoking Tobacco: Former Cigarettes 1 46 0 03/1975 - 03/2021 Passive Smoke Exposure: Past Smokeless Tobacco: Never Alcohol Use Standard Drinks/Week Comments Not Currently 0 (1 standard drink = 0.6 oz pure alcohol) special occasional d/t medication Education Answer Date Recorded Are you interested in more education? Not on niki e 11/01/2022 Are you concerned about learning? Not on file 11/01/2022 No 11/01/2022 No 11/01/2022 Digital Access Answer Date Recorded No 11/27/2022 No 11/27/2022 Reliable internet access at home? Not on file 11/27/2022 Device with a working camera? Not on file Intimate Partner Violence Answer Date R ecorded Denied Basic Needs Not on file 11/27/2023 In the past 12 months have y ou been in a relationship with a person who hurts, threatens, or tries to control you? No 11/27/2023 Worried food would run out Not on file 11/26 In the past 12 months have y ou been in a relationship with a person who hurts, threatens, or tries to control you? No 11/27/2023 Sex and Gender Information Value Date Recorded Sex Assigned at Not on file Legal Sex Male 9:53 PM EDT Gender Identity Not on file Sexual Orientation Not on file documented as of this encounter Plan of Treatment Upcoming Encounters Date Type Department Care Team (Late st Contact Info) Description 04/04/2025 10:30 AM EDT Office Visit [facility] [address] [place] [address] [place] [address] Mike Sanchez DO [address] [place] [address] documented as of this encounter Visit Diagnoses Not on filedocumented in this encounter Additional Health Concerns Assessment Noted Time PHQ-2 Depression Total Score: 0 11/27/19 24 2:30 PM EDT documented as of this encounter Care Teams Toe Trimmer Relationship Specialty Start Date End Date Mike Sanchez DO [address] [place] [phone] PCP - General Internal Medicine 09/10/23 Mike Sanchez DO [address] [place] [address] Insurance Assigned Provider 10/10/24 documented as of this encounter Additional Source Comments The information contained in this document represents components of the legal health record. It is not the complete legal health record.[facility]
== END 2025-01-26 11:17 | disposition home or self-care (01) ==
LOC: HO.HAP 11:16
PROVIDERS: Visit Provider Internal Medicine
DX: Z46.1 Encounter for fitting and adjustment of hearing aid (principal); H90.3 Sensorineural hearing loss, bilateral
CPT/HCPCS: 92593; V5266

== ENCOUNTER 2025-06-21 10:15 | Outpatient (REF) | payer SELFPAY ==
--- OUTSIDE RECORDS SUMMARY | 2025-06-21 12:45 | XMS_ITS | Encounter Summary ---
Author Organization [facility] Address [address] [place] [address] Phone Care Team Providers Care Ledger Clerk Name Role Phone Mike Sanchez DO Primary Care Provider Mike Sanchez DO Unavailable [phone] Encounter Details Date Type Department Care Team (Late st Contact Info) Description 11/27/2023 Procedure Pass [facility], [address] [address] Social History Tobacco Use Types Packs/Day Years [...] Care Team (Late st Contact Info) Description 07/12/2025 10:30 AM EST Office Visit [facility] [address] [place] [address] [place] [address] Mike Sanchez DO [address] [place] [address] [email or web address] documented as of this encounter Visit Diagnoses Not on filedocumented in this encounter Additional Health Concerns Assessment Noted Time PHQ-2 Depression Total Score: 0 11/27/19 24 2:30 PM EDT documented as of this encounter Care Teams Ledger Clerk Relationship Specialty Start Date End Date Mike Sanchez DO [address] [place] [address] [email or web address] PCP - General Internal Medicine 09/10/23 Mike Sanchez DO [address] [place] [address] Insurance Assigned Provider 10/10/24 documented as of this encounter Additional Source Comments The information contained in this document represents components of the legal health record. It is not the complete legal health record.[facility]
--- OUTSIDE RECORDS SUMMARY | 2025-06-21 12:45 | XMS_ITS | Encounter Summary ---
Author Organization [facility] Address [address] [place] [address] Phone Care Team Providers Care Modeling Analyst Name Role Phone Love Anders NP Primary Care Provider Shady Bueno MD Unavailable [phone] Mike Sanchez DO Primary Care Provider Mike Sanchez DO Unavailable [phone] Encounter Details Date Type Department Care Team (Late st Contact Info) Description 05/21/2023 Telephone [facility] [address] [place] [address] , Carolyn [address] [place] [address] [email or web address] Social History Tobacco Use Types Packs/Day Years Used Date Smoking Tobacco: Former Cigarettes 1 46 0 03/1975 - 03/2021 Smokeless Tobacco: Never Alcohol Use Standard Drinks/Week [...] with a working camera? Not on file Sex and Gender Information Value Date Recorded Sex Assigned at Not on file Legal Sex Male 9:53 PM EDT Gender Identity Not on file Sexual Orientation Not on file documented as of this encounter Plan of Treatment Upcoming Encounters Date Type Department Care Team (Late st Contact Info) Description 07/12/2025 10:30 AM EST Office Visit [facility] [address] [place] [address] [place] [address] Mike Sanchez DO [address] [place] [phone] documented as of this encounter Visit Diagnoses Not on filedocumented in this encounter Additional Health Concerns Assessment Noted Time PHQ-2 Depression Total Score: 0 12/12/19 23 10:10 AM EDT documented as of this encounter Care Teams Modeling Analyst Relationship Specialty Start Date End Date Love Anders NP PCP - General 04/24/17 09/09/23 Mike Sanchez DO [address] [place] [address] PCP - General Internal Medicine 09/10/23 Shady Bueno MD [address] [place] [address] Insurance Assigned Provider 10/12/22 07/12/23 Mike Sanchez DO [address] [place] [phone] Insurance Assigned Provider 10/10/24 documented as of this encounter Additional Source Comments The information contained in this document represents components of the legal health record. It is not the complete legal health record.[facility]
--- OUTSIDE RECORDS SUMMARY | 2025-06-21 12:45 | XMS_ITS | Encounter Summary ---
Author Organization [facility] Address [address] [place] [address] Phone Care Team Providers Care Crayon Sorting Machine Feeder Name Role Phone Love Anders NP Primary Care Provider [phone] Shady Bueno MD Unavailable Mike Sanchez DO Primary Care Provider Mike Sanchez DO Unavailable [phone] Encounter Details Date Type Department Care Team (Late st Contact Info) Description 10/09/2021 Prep for Surgery [facility] [address] [place] [phone] Barbara Aldrich MD [address] [facility], 2nd [place] [address] [email or web address] Inguinal mass (Primary Dx) Social History Tobacco Use Types Packs/Day Years Used Date Smoking Tobacco: Former Cigarettes 1 46 0 03/1975 - 03/2021 Smokeless Tobacco: Never Alcohol Use Standard Drinks/Week Comments No 0 (1 standard drink = 0.6 oz pur e alcohol) Sex and Gender Information Value Date Recorded Sex Assigned at Not on file Legal Sex Male 9:53 PM EDT Gender Identity Not on file Sexual Orientation Not on file documented as of this encounter Plan of Treatment Upcoming Encounters Date Type Department Care Team (Late st Contact Info) Description 07/12/2025 10:30 AM EST Office Visit [facility] [address] [place] [address] Mike Sanchez DO [address] [facility], [address] [place] [address] documented as of this encounter Visit Diagnoses Diagnosis Inguinal mass- Primary Abdominal or pelvic swelling, mass or lump, unspecified site documented in this encounter Additional Health Concerns Assessment Noted Time PHQ-2 Depression Total Score: 0 04/13/20 19 9:04 AM EDT documented as of this encounter Care Teams Crayon Sorting Machine Feeder Relationship Specialty Start Date End Date Love Anders NP PCP - General 04/24/17 09/09/23 Mike Sanchez DO [address] [place] [address] PCP - General Internal Medicine 09/10/23 Shady Bueno MD [address] [place] [phone] Insurance Assigned Provider 10/12/22 07/12/23 Mike Sanchez DO [address] [place] [address] [place] [address] Insurance Assigned Provider 10/10/24 documented as of this encounter Additional Source Comments The information contained in this document represents components of the legal health record. It is not the complete legal health record.[facility]
--- OUTSIDE RECORDS SUMMARY | 2025-06-21 12:46 | XMS_ITS | Encounter Summary ---
Author Organization [facility] Address [address] [place] [address] Phone Care Team Providers Care Diesel Engine Specialist Name Role Phone Love Anders NP Primary Care Provider [phone] Shady Bueno MD Unavailable [phone] Mike Sanchez DO Primary Care Provider Mike Sanchez DO Unavailable [phone] Encounter Details Date Type Department Care Team (Late st Contact Info) Description 10/31/2021 Procedure Pass OR Admitting Dept - [facility] Department [address] [place] [address] Social History Tobacco Use Types Packs/Day Years [...] on file documented as of this encounter Functional Status * Calculated C-SSRS Risk Score (Lifetime/Recent) Answer Date of Assessment Author No Risk Indicated 10/31/2021 11:38 PM EDT Rachel Vargas, RN * [place] Suicide Severity Rating Scale (Screener/Recent Self-Report) Question Answer Date of Assessment Author 1. Wish to be (Past 1 Month) No 10/31/2021 11:38 PM EDT Rachel Wilson RN 2. Non-Specific Active Suici adelaida Thoughts (Past 1 Month) No 10/31/2021 11:38 PM EDT Ricardo Wilson RN 6. Suicidal Behavior (Lifetime) No 11:38 PM EDT Rachel Wilson RN documented as of this encounter Plan of Treatment Upcoming Encounters Date Type Department Care Team (Late st Contact Info) Description 07/12/2025 10:30 AM EST Office Visit [facility] [address] [place] [address] [place] [address] Mike Sanchez DO [address] [place] [address] [email or web address] documented as of this encounter Visit Diagnoses Not on filedocumented in this encounter Additional Health Concerns Assessment Noted Time PHQ-2 Depression Total Score: 0 04/13/20 19 9:04 AM EDT documented as of this encounter Care Teams Diesel Engine Specialist Relationship Specialty Start Date End Date Love Anders NP PCP - General 04/24/17 09/09/23 Mike Sanchez DO [address] [place] [address] PCP - General Internal Medicine 09/10/23 Shady Bueno MD [address] [place] [address] Insurance Assigned Provider 10/12/22 07/12/23 Mike Sanchez DO [address] [place] [address] [email or web address] Insurance Assigned Provider 10/10/24 documented as of this encounter Additional Source Comments The information contained in this document represents components of the legal health record. It is not the complete legal health record.[facility]
--- OUTSIDE RECORDS SUMMARY | 2025-06-21 12:46 | XMS_ITS | Clinical Summary ---
Author Organization [facility] Address [address] [id number] [place] [address] Phone Care Team Providers Care Senior Net Application Developer Name Role Phone Mike Sanchez DO Primary Care Provider Mike Sanchez DO Unavailable [phone] Allergies No known active allergies Medications ibuprofen (ADVIL,MOTRIN) 200 MG tablet Take 2 tablets (400 mg total) by mouth every 6 (six) hours as needed for pain (specific location in comments). 11/01/19 22 Active ciclopirox (PENLAC) 8 % solutionIndicatio ns:Type 2 diabetes mellitus with hyperglycemia, without long-term current use of insulin,Neuropath y APPLY AT BEDTIME TO NAILS & surrounding SKIN. Apply daily over previous coat. After seven (7) days, may remove with acetone and continue cycle. 6.6 mL 3 12/26/19 22 Active blood-glucose transmitter (DEXCOM G6 TRANSMITTER) Maribell 1 Device by Miscellaneous route daily. 1 each 3 05/24/20 22 Active blood-glucose meter,continuous (DEXCOM G6 BALER) Misc by Miscellaneous route as needed. 1 each 4 05/24/20 22 Active TRUEPLUS LANCETS 33 gauge MiscIndications:T ype 2 diabetes mellitus with unspecified complications USE TO TEST BLOOD SUGAR THREE TIMES DAILY 100 each 3 10/01/19 23 Active FREESTYLE LITE Strp stripsIndications :Type 2 diabetes mellitus with unspecified complications USE TO TEST BLOOD SUGAR THREE TIMES DAILY 100 strip 3 10/01/19 Active leg brace Misc 1 Units by Miscellaneous route daily. Right low leg brace, please eval and treat, weakness due to CVA 1 each 11/16/19 Active blood-glucose sensor (FREESTYLE AVELINO 3 SENSOR) Maribell 1 Units by Miscellaneous route daily. 1 each 12/12/19 Active FREESTYLE AVELINO 2 SENSOR kit 1 each by Miscellaneous route as needed for other (free text field). Use as instructed 1 each 12/12/19 Active aspirin 81 MG EC tablet Take 1 tablet (81 mg total) by mouth every morning. 90 tablet 3 01/14/20 Active gabapentin (NEURONTIN) 300 MG capsuleIndication s:Neuropathy TAKE 1 CAPSULE BY MOUTH EVERY MORNING AND TAKE 2 CAPSULES BY MOUTH EVERY EVENING 270 capsule 01/14/20 25 Active amLODIPine (NORVASC) 5 MG tabletIndications :Essential hypertension Take 1 tablet (5 mg total) by mouth daily. 90 tablet 3 04/04/20 25 Active pantoprazole (PROTONIX) 40 MG tabletIndications :Gastroesophageal reflux disease without esophagitis Take 1 tablet (40 mg total) by mouth daily before breakfast. 90 tablet 3 04/04/20 25 Active furosemide (LASIX) 20 MG tabletIndications :Essential hypertension,Bila teral leg edema TAKE 2 TABLETS BY MOUTH DAILY ON FRIDAY AND FRIDAY AND 1 TABLET DAILY ALL OTHER DAYS 270 tablet 2 04/04/20 25 Active metFORMIN (GLUCOPHAGE) 500 MG immediate release tabletIndications :Type 2 diabetes mellitus with diabetic mononeuropathy, without long-term current use of insulin Take 1 tablet (500 mg total) by mouth 2 (two) times a day. After meals 180 tablet 04/04/20 25 Active tirzepatide (MOUNJARO) 7.5 mg/0.5 mL PnIj subcutaneous penIndications:Ty pe 2 diabetes mellitus with diabetic mononeuropathy, without long-term current use of insulin Inject 0.5 mL (7.5 mg total) under the skin once a week. 6 mL 04/04/20 25 Active lisinopril (PRINIVIL,ZESTRIL ) 20 MG tabletIndications :Essential hypertension Take 1 tablet (20 mg total) by mouth 2 (two) times a day. 180 tablet 06/15/20 25 Active cholecalciferol (VITAMIN D3) 2,000 unit tabletIndications :Low vitamin D level Take 1 tablet (2,000 Units total) by mouth daily. 90 tablet 3 06/15/20 25 Active docusate sodium (COLACE) 100 MG capsuleIndication s:Constipation, unspecified constipation type Take 1 capsule (100 mg total) by mouth 2 (two) times a day. 180 capsule 3 06/15/20 25 Active atorvastatin (LIPITOR) 80 MG tabletIndications :Mixed hyperlipidemia Take 1 tablet (80 mg total) by mouth daily. 90 tablet 06/15/20 25 Active docusate sodium (COLACE) 100 MG capsuleIndication s:Constipation, unspecified constipation type Take 1 capsule (100 mg total) by mouth 2 (two) times a day. 180 capsule 3 01/14/20 25 025 Discontin ued(Reord er) lisinopril (PRINIVIL,ZESTRIL ) 20 MG tabletIndications :Essential hypertension TAKE 1 TABLET BY MOUTH TWICE A DAY 180 tablet 03/09/20 25 025 Discontin ued(Reord er) cholecalciferol (VITAMIN D3) 2,000 unit tabletIndications :Low vitamin D level Take 1 tablet (2,000 Units total) by mouth daily. 90 tablet 3 03/18/20 25 025 Discontin ued(Reord er) atorvastatin (LIPITOR) 80 MG tabletIndications :Mixed hyperlipidemia Take 1 tablet (80 mg total) by mouth daily. 90 tablet 04/04/20 25 025 Discontin ued(Reord er) Active Problems Problem Noted Date Diagnosed Date Instability of right knee joint 11/27/2023 Assessment & Plan (11/27/2023 11:56 PM EDT): Patient reports continued knee buckling and instability, present since 2021 when seen by orthopedics. Knee x-ray obtained at that time showed no significant abnormality, some mild arthritis. Due to continued complaint and minimal improvement with knee bracing and home exercise would recommend evaluation by MRI. Order placed today. Bilateral leg edema 11/20/2021 Assessment & Plan (04/05/2025 1:12 AM EDT): No new symptoms, continue monitoring. Lasix has been helping. Assessment & Plan (11/27/2023 11:54 PM EDT): Stable, continue monitoring. Right leg weakness 11/20/2021 Condyloma acuminatum 11/07/2021 History of CVA with residual deficit 04/27/2021 Overview (11/27/2023): >>OVERVIEW FOR LACUNAR STROKE WRITTEN ON 04/27/2021 10:26 AM BY BISHOP SHEA MD 03/31/2021 lacunar infarct left sided resulting in right-sided hemiparesis with some slurring of speech and moderate apraxia. Moderate ataxia as well. Assessment & Plan (11/27/2023 11:55 PM EDT): Left-sided lacunar infarct with right-sided hemiparesis, speech slurring and some apraxia. Has improved some over time. Continue monitoring and current medications. Assessment & Plan (11/27/2023 2:48 PM EDT): >>ASSESSMENT AND PLAN FOR LACUNAR STROKE WRITTEN ON 04/27/2021 10:30 AM BY BISHOP SHEA MD So I am seeing this patient for the first time so I do not know his baseline capabilities. 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 Patient and I agree that he needs some time with physical therapy to build up his strength to regain his balance and to regain his flexibility. Therefore continue outpatient physical therapy for 3 months and then reassess here in the office and his paperwork was filled out to keep him out of work until we could reassess him July 28. He will remain on full-strength Lipitor and we will assess lipid profile in July. He will remain on the lower dose of Metformin. He will come off of the Plavix as recommended by the hospitalist prior to discharge over at [facility]. He will come back next week for the hemoglobin A1c. I have referred the patient to podiatry [facility] to assess for ingrown nail right sided in the setting of paresthesias diabetes and stroke. Renal insufficiency 01/23/2021 Bilateral deafness 05/08/2018 Gastroesophageal reflux disease without esophagi tis 09/04/2017 Assessment & Plan (04/05/2025 1:12 AM EDT): Stable well-controlled on current medication, no change at this time. Continue monitoring. Bilateral hand pain 09/04/2017 Type 2 diabetes mellitus wit h diabetic mononeuropathy, without long-term current use of insulin 05/09/2017 Assessment & Plan (04/05/2025 1:12 AM EDT): Blood sugars have been well-controlled, continue monitoring on tirzepatide. Assessment & Plan (07/21/2024 2:23 PM EST): Poorly controlled blood sugars on current medication. Increase Mounjaro to 7.5 mg weekly and monitor for effect. Assessment & Plan (05/05/2024 12:15 PM EDT): No CGM or meter data to review We discussed the value in wearing personal CGM On metformin, BAILEY, and GLP-1ra/GIP, tolerating GLP-1ra/GIP well Concern for hypoglycemia that is going undetected when Jaime is not monitoring sugars, recommend increase in GLP1/GIP dosing, discontinuation of glimepiride Encouraged efforts at balanced, mindful eating and making slow, gradual lifestyle adjustments Encouraged efforts at increasing physical activity as tolerated Advised to contact office with any questions or concerns. Jaime will return to see me in 2 months and with Lou Barillas in 3 months Assessment & Plan (11/27/2023 11:57 PM EDT): Follows with diabetes clinic-now working with a linux server engineer which should help with improving his numbers. Continue current medications without change at this time. Encouraged to use CGM for better data. Assessment & Plan (10/20/2023 5:54 PM EDT): CGM data reviewed with Jaime, higher blood sugars on second week of most recent download, this looks around the time when Jaime was without GLP1 or GLP1/GIP We discussed the value in wearing personal CGM On metformin, BAILEY, and GLP-1ra/GIP, tolerating GLP-1ra/GIP well, but no updated CGM data since starting this, we discussed waiting for medication adjustments until there is data Repeat blood pressure essentially normal today today. GFR reviewed, reduced function. Positive microalbuminuria. Encouraged efforts at balanced, mindful eating and making slow, gradual lifestyle adjustments Encouraged efforts at increasing physical activity as tolerated Advised to contact office with any questions or concerns. Jaime will return to see Lou in 1 month, we will follow up in 4 months Assessment & Plan (09/15/2023 5:40 PM EDT): CGM data reviewed with Jaime, reasonable control overall Jaime reports being unable to get Trulicity refill, we discussed shortage and options, Jaime is open to trying Mounjaro, which is a similar administration pen to what he is taking We discussed the value in wearing personal CGM, Jaime is agreeable to using some of the leftover sensors he has On metformin and GLP-1ra, tolerating GLP-1ra well, also discussed BAILEY therapy at length today, it seems that Jaime is taking this twice daily, but unsure how he is doing this without running out with the way prescription is written, recommend holding BAILEY when starting Mounjaro until we can reasses patterns Blood pressure in good range today. GFR reviewed, reduced function. Positive microalbuminuria. Unable to reassess feet today due to time constraints, Jaime is encouraged to reach out to foot doctor to schedule visit Encouraged efforts at balanced, mindful eating and making slow, gradual lifestyle adjustments Encouraged efforts at increasing physical activity as tolerated Advised to contact office with any questions or concerns. We will follow up in 4 weeks, Jaime will return to see Lou in 2 months Assessment & Plan (09/04/2023 5:34 PM EST): Limited glycemic data leading to difficulty to assess efficacy of current diabetes regimen. We discussed the value in wearing personal CGM, Jaime is agreeable to using some of the leftover sensors he has Encouraged reaching out to [facility] to discuss bills and to see if they can set Jaime up on a payment plan/offer assistance On metformin and GLP-1ra, tolerating GLP-1ra well, also discussed BAILEY therapy at length today, recommend continuing medications as he has been taking until we can review CGM data, discontinuing glimepiride if having any hypoglycemia on CGM download Blood pressure elevated today. GFR reviewed, reduced function. Positive microalbuminuria. Foot exam done today, concerning for some open areas on right 5th toe, likely related to friction from not wearing socks and being barefoot in sneakers, encouraged Jaime to wear socks with his shoes, also referred to podiatry, contact info given to Jaime to reach out to schedule a visit, soles of feet were blackened with dirt, again likely related to wearing shoes without socks Encouraged efforts at balanced, mindful eating and making slow, gradual lifestyle adjustments Encouraged efforts at increasing physical activity as tolerated Advised to contact office with any questions or concerns. We will follow up in 2 weeks. CGM Training Type of Diabetes: Diabetes mellitus Type 2 Assessment/HPI: Jaime is here today for CGM training Procedures: Glucose Monitoring: Type of Sensor: Dexcom G7 Instruction: Patient Instructed on:, Calibrations, When to test BS, Troubleshooting, What to expect with the sensor, Patient instructed to remove sensor if redness, pain or bleeding occurs. . Insertion Site Selected: Right arm Site Prep: Insertion site wiped with alcohol. Insertion: completed, area looks good, no redness, no bleeding. Plan: Patient will remove sensor and return in 2 weeks for follow up appointment. Assessment & Plan (12/25/2022 3:36 PM EDT): Jaime has been having worsening control. With limited glycemic data, difficult to assess efficacy of current diabetes regimen. We discussed the value in doing a CGM trial, Jaime is agreeable to a blinded CGM trial On metformin and GLP-1ra, tolerating GLP-1ra well, does report off and on diarrhea which attributes this to metformin, taking dose before eating. We discussed trying to take metformin immediately after eating to see if this helps reduce side effects Also discussed BAILEY therapy at length today, recommend remaining off of this until CGM trial is reviewed since symptoms could be hypoglycemia. Jaime would like a personal CGM and given history of hypoglycemia symptoms with BAILEY therapy, we can certainly submit an order to see if insurance will cover it under new Medicare guidelines with CGM coverage. This would be an invaluable tool to help guide Jaime in realtime to make lifestyle adjustments and decisions to help stabilize glycemic control. Blood pressure in good range today. GFR reviewed, reduced function. Positive microalbuminuria. Encouraged efforts at balanced, mindful eating and making slow, gradual lifestyle adjustments Encouraged efforts at increasing physical activity as tolerated Advised to contact office with any questions or concerns, otherwise Jiame will follow up in 2 weeks to meet with Lou Barillas for diabetes education at which time I can evaluate CGM. We will follow up in 6 weeks. CGM Trial Type of Diabetes: Diabetes mellitus Type 2 Assessment/HPI: Jaime is here today for CGM trial. Procedures: Glucose Monitoring: Type of Sensor: Freestyle Avelino 2 Pro Instruction: Patient Instructed on:, Calibrations, When to test BS, Troubleshooting, What to expect with the sensor, Patient instructed to remove sensor if redness, pain or bleeding occurs. . Insertion Site Selected: Right arm Site Prep: Insertion site wiped with alcohol. Insertion: completed, area looks good, no redness, no bleeding. Plan: Patient will remove sensor and return in 2 weeks to drop off at manager front office or follow up appointment. Non morbid obesity 05/09/2017 Mixed hyperlipidemia 05/09/2017 Assessment & Plan (04/05/2025 1:09 AM EDT): Stable and well-controlled on current medication, continue monitoring. Assessment & Plan (05/05/2024 10:26 AM EDT): No updated lipid panel since last visit LDL above goal Goal LDL <70 with DM, tighter goal <55 with DM, history of CVA Continues on high intensity statin Assessment & Plan (10/20/2023 5:54 PM EDT): No updated lipid panel since last visit LDL above goal Goal LDL <70 with DM, tighter goal <55 with DM, history of CVA Continues on high intensity statin Assessment & Plan (09/15/2023 5:40 PM EDT): No updated lipid panel since last visit LDL above goal Goal LDL <70 with DM, tighter goal <55 with DM, history of CVA Continues on high intensity statin Assessment & Plan (09/04/2023 5:34 PM EST): Reviewed most recent lipid panel LDL above goal Goal LDL <70 with DM, tighter goal <55 with DM, history of CVA Continues on high intensity statin Assessment & Plan (12/25/2022 3:29 PM EDT): Reviewed most recent lipid panel LDL above goal Goal LDL <70 with DM, tighter goal <55 with DM, history of CVA Continues on high intensity statin Essential hypertension 05/09/2017 Assessment & Plan (04/05/2025 1:09 AM EDT): Stable well-controlled on current medication, no change at this time. Continue monitoring. Assessment & Plan (07/21/2024 2:23 PM EST): Borderline-will increase control with amlodipine 5 mg daily and monitor for effect. Assessment & Plan (05/05/2024 12:18 PM EDT): Blood pressure initially elevated, remains elevated on retake BP Goal < 130/80 On antihypertensive regimen that includes ACEi Encouraged following up with primary care it appears that Jaime was supposed to follow up 6 weeks after last visit, but never did. Jaime was confused on who manages what so we reviewed this today and he is encouraged to make a follow up with Dr. Sanchez for hypertension and any other primary health concerns aside from diabetes Assessment & Plan (11/27/2023 11:57 PM EDT): Stable and well-controlled on current medication. Slight elevated today-continue monitoring. Reports he does get elevated blood pressures at doctors offices at times. Adjusted medications-on Lasix and hydrochlorothiazide. No need for both. Will continue Lasix alone. Monitor for effect. Assessment & Plan (10/20/2023 5:54 PM EDT): Blood pressure initially elevated, essentially normal on retake BP Goal < 130/80 On antihypertensive regimen that includes ACEi Assessment & Plan (09/15/2023 5:40 PM EDT): Blood pressure in good range today BP Goal < 130/80 On antihypertensive regimen that includes ACEi Assessment & Plan (09/04/2023 5:35 PM EST): Blood pressure elevated today BP Goal < 130/80 On antihypertensive regimen that includes ACEi Assessment & Plan (12/25/2022 3:29 PM EDT): Blood pressure in good range today BP Goal < 130/80 On antihypertensive regimen that includes ACEi Resolved Problems Problem Noted Date Diagnosed Date Resolved Date Inguinal mass 11/01/2021 11/07/2021 Encounters Date Type Department Care Team Description 06/14/2025 Refill [facility] [address] [place] [address] Anh Sanchez Medication Refill 05/26/2025 Telephone [facility] [address] [place] [address] [place] [address] Savannah Dominguez MA CLINICAL NOTES 04/08/[address] [place] [address] Mike Sanchez DO Medication Problem; Medication Refill 04/04/2025 10:30 AM EDT Office Visit [address] [place] [address] Mike Sanchez DO Essential hypertension; Gastroesophageal reflux disease without esophagitis; Type 2 diabetes mellitus with diabetic mononeuropathy, without long-term current use of insulin; Bilateral leg edema; Mixed hyperlipidemia from Last 3 Months Immunizations Immunization Administration Dates Next Due COVID-19 (Pre-04/28) Moderna Vaccine, mRNA, PF 12/07/2020,11/07/2020 INFLUENZA, SPLIT VIRUS, TRIVALENT PF 04/19/2016, 07/17/2015,07/13/2012 INFLUENZA, SPLIT VIRUS, TRIV ALENT W/ PRESERVATIVE IM 05/13/2014 Influenza High-Dose Quadriva lent Preservative Free IM 05/24/2022 Influenza Quadrivalent Prese rvative Free IM 06/19/2021,04/13/2019,05/08/2018 Influenza Quadrivalent w/ Pr eservative IM 04/11/2017,04/19/2016,07/17/2015,05/13,04/05/2013 Influenza trivalent preserva tive free intradermal 04/06/2013 Pneumococcal polysaccharide PPSV23 07/13/2012 Family History Medical History Relation Comments Diabetes Brother Lung cancer Brother Heart failure Father Kidney cancer Mother Kidney failure Mother Heart attack Sister High cholesterol Sister Hyperlipidemia Sister Kidney disease Sister Relation Status Comments Brother Father Mother Sister Social History Tobacco Use Types Packs/Day Years Used Date Smoking Tobacco: Former Cigarettes 1 46 0 03/1975 - 03/2021 Passive Smoke Exposure: Past Smokeless Tobacco: Never Tobacco Cessation:Counseling Given: Not Answered Alcohol Use Standard Drinks/Week Comments Not Currently [...] on file Sexual Orientation Not on file Last Filed Vital Signs Vital Sign Reading Time Taken Comments Blood Pressure 132/80 04/04/2025 10:35 AM EDT Pulse 91 04/04/2025 10:35 AM EDT Temperature 36.7 C (98 F) 10/18/2024 10:28 AM EDT Respiratory Rate 16 12/11/2022 10:22 AM EDT Oxygen Saturation 99% 04/04/2025 10:35 AM EDT Inhaled Oxygen Concentration - - Weight 77.6 kg (171 lb) 04/04/2025 10:35 AM EDT Height 160 cm (5' 3 ) 05/05/2024 10:09 AM EDT Body Mass Index 30.29 05/05/2024 10:09 AM EDT Plan of Treatment Upcoming Encounters Date Type Department Care Team (Late st Contact Info) Description 07/12/2025 10:30 AM EST Office Visit [facility] [address] [place] [address] Mike Sanchez DO [address] [facility] [place] [address] Health Maintenance Due Date Last Done Comments Adult Td,Tdap Booster 1957 COLOGUARD 2002 COLONOSCOPY 2002 COLORECTAL CANCER SCREENING 2002 FIT TEST 2002 FOBT 2002 SIGMOIDOSCOPY 2002 VIRTUAL COLONOSCOPY 2002 LUNG CANCER SCREENING (LDCT Only) 2007 RSV VACCINE (1 - Risk 50-74 years 1-dose series) 2007 ZOSTER VACCINES (1 of 2) 2007 PNEUMOCOCCAL VACCINES (50+ years) (2 of 2 - PCV) 07/13/2013 07/13/2012 DIABETIC EYE EXAM 06/02/2019 06/02/2018 ABDOMINAL AORTIC ANEURYSM (AAA) SCREENING 2022 CREATININE LEVEL 12/12/2023 12/11/2022, , 02/08/2022, Additional history exists POTASSIUM LEVEL 12/12/2023 12/11/2022, 08/07, 02/08/2022, Additional history exists INFLUENZA VACCINE (#1) 2025 , 05/24/2022, 06/19/2021, Additional history exists COVID-19 VACCINE (4 - 2025-26 season) 2025 08/14/2021, 12/07/2020, 11/07/2020 HEMOGLOBIN A1C 04/19/2025 10/18/2024, 07/07, 05/05/2024, Additional history exists BLOOD PRESSURE 10/02/2025 04/04/2025 DEPRESSION SCREENING 04/04/2026 04/04/2025 SMOKING Hx and SMOKELESS TOBACCO SCREENING 04/04/2026 04/04/2025 HEPATITIS C SCREENING Completed 11/20/2021, 022 HEPATITIS A VACCINES Aged Out No long er eligible based on patient's age to complete this topic HIB VACCINES Aged Out No longer eligi ble based on patient's age to complete this topic MENINGOCOCCAL VACCINES (ACWY) Aged Out No longer eligible based on patient's age to complete this topic MENINGOCOCCAL VACCINES (B) Aged Out N o longer eligible based on patient's age to complete this topic Medical Devices Not on file Procedures Procedure Name Priority Date/Time Associated Diagnosis Comments POCT HEMOGLOBIN A1C Routine 10/18/2024 1 1:34 AM EDT Type 2 diabetes mellitus with diabetic mononeuropathy, without long-term current use of insulin COMPREHENSIVE METABOLIC PANEL (CMP) Routine 12/11/2022 11:12 AM EDT Essential hypertension HEPATITIS C ANTIBODY, QUALITATIVE Routine 11/20/2021 2:55 PM EDT Need for hepatitis C screening test DIABETES EYE EXAM FOR RESULT ENTRY ONLY Routine 06/02/2018 from Last 3 Months or Most Recently Relevant to Health Maintenance Results * (ABNORMAL) POCT Hemoglobin A1c (10/18/2024 11:34 AM EDT) Hemoglobin A1c 6.5(A) 4.2 - 5.6 % [facility] Other 10/18/2024 11:3 4 AM EDT us Mike Dustin Sanchez DO LAB POCT ENTER/EDIT ORD ERABLES Final Result [facility] [address] [place] [address], [facility] * (ABNORMAL) Comprehensive metabolic panel (12/11/2022 11:12 AM EDT) SODIUM 140 133 - 146 mmol/L [facility] POTASSIUM 4.7 3.3 - 5.1 mmol/L [facility] CHLORIDE 104 96 - 108 mmol/L [facility] CO2 25 21 - 35 mmol/L [facility] BUN 16 6 - 19 mg/dL [facility] CREATININE 1.50 0.5 - 1.5 mg/dL [facility] GLUCOSE 282(H) 70 - 99 mg/dL [facility] ALBUMIN 3.9 3.9 - 4.8 g/dL [facility] TOTAL PROTEIN 7.4 6.5 - 8.0 g/dL [facility] CALCIUM 9.5 8.4 - 10.3 mg/dL [facility] ALKALINE PHOSPHATASE 117 39 - 117 U/L [facility] TOTAL BILIRUBIN 0.3 0.0 - 1.2 mg/dL [facility] AST 17 0 - 37 U/L [facility] ALT 19 0 - 40 U/L [facility] GLOBULIN 3.5 1 - 4.8 g/dL [facility] EGFR 51(L) >59 mL/min/1.7 3m2 [facility] Comment:Estimated glomerular filtration rate calculated using the CKD-EPI refit equation. ANION GAP 16 10 - 20 mmol/L [facility] Blood 12/11/2022 11:1 2 AM EDT 12/11/2022 11:18 AM EDT us Love Anders NP LAB BLOOD BKR ORDERABLES Final Result [address] [address] * Hepatitis C antibody, qualitative (11/20/2021 2:55 PM EDT) HCV NON-REACTIV E NON-REACTI VE [facility] Blood 11/20/2021 2:55 PM EDT 11/20/2021 2:58 PM EDT Love Anders NP LAB BLOOD BKR ORDERABLES Final Result [facility] [address] [place] [address] * DIABETES EYE EXAM FOR RESULT ENTRY ONLY (06/02/2018) Historical Provider MD HEALTH MAINTENANCE Final Result from Last 3 Months or Most Recently Relevant to Health Maintenance Insurance MEDICARE PART A & B [facility] MEDICARE PART A & B Member Subscriber Plan / Payer (Ef fective 1997-Present) Name:Jaime Tomlinson Member ID:[id number] Relation to Subscriber:Self Name:Jaime Tomlinson Subscriber ID:[id number] Payer ID:[id number] Group ID:Not on file Type:Medicare Address: [facility] [employer] [address] MEDICARE PART A & B MEDICARE PART A & B MEDICARE PART A & B MEDICARE PART A & B MEDICARE PART A & B MEDICARE PART A & [place] [address] MEDICARE PART A & B [facility] Advance Directives For more information, please contact: [phone] (9AM - 5PM [facility], Friday-Friday) * Full Code (Latest Code Status on File) Date Activated Date Inactivated Comments 10/31/2021 12:31 PM Question Answer Comments Code Status Confirmed With: Patient Care Teams Senior Net Application Developer Relationship Specialty Start Date End Date Mike Sanchez DO [address] [place] [address], [address] [place] [phone] [email or web address] PCP - General Internal Medicine 09/10/23 Mike Sanchez DO [address] [place] [address], [address] [place] [phone] [email or web address] Insurance Assigned Provider 10/10/24 Additional Source Comments The information contained in this document represents components of the legal health record. It is not the complete legal health record.[facility]
--- OUTSIDE RECORDS SUMMARY | 2025-06-21 12:46 | XMS_ITS | Encounter Summary ---
Author Organization [facility] Address [address] [place] [address] Phone Care Team Providers Care Hotel Services Sales Representative Name Role Phone Love Anders NP Primary Care Provider [phone] Shady Bueno MD Unavailable [phone] Mike Sanchez DO Primary Care Provider Mike Sanchez DO Unavailable [phone] Encounter Details Date Type Department Care Team (Late st Contact Info) Description 08/30/2021 Procedure Pass [facility] [address] [place] [address] Social History Tobacco Use Types Packs/Day Years [...] AM EST Office Visit [facility] [address] [place] [address] [place] [address] Mike Sanchez DO [address] [place] [address] documented as of this encounter Visit Diagnoses Not on filedocumented in this encounter Additional Health Concerns Assessment Noted Time PHQ-2 Depression Total Score: 0 04/13/20 19 9:04 AM EDT documented as of this encounter Care Teams Hotel Services Sales Representative Relationship Specialty Start Date End Date Love Anders, LIZY PCP - General 04/24/17 09/09/23 Mike Sanchez DO [address] [place] [phone] PCP - General Internal Medicine 09/10/23 Shady Bueno MD [address] [place] [phone] Insurance Assigned Provider 10/12/22 07/12/23 Mike Sanchez DO [address] [place] [phone] Insurance Assigned Provider 10/10/24 documented as of this encounter Additional Source Comments The information contained in this document represents components of the legal health record. It is not the complete legal health record.[facility]
--- OUTSIDE RECORDS SUMMARY | 2025-06-21 12:46 | XMS_ITS | Encounter Summary ---
Author Organization [facility] Address [address] [place] [address] Phone Care Team Providers Care Vp Marketing Services And Skin Name Role Phone Love Anders NP Primary Care Provider [phone] Shady Bueno MD Unavailable [phone] Mike Sanchez DO Primary Care Provider Mike Sanchez DO Unavailable [phone] Encounter Details Date Type Department Care Team (Late st Contact Info) Description 08/24/2021 Procedure Pass [facility] [address] [place] [address] Social History Tobacco Use Types Packs/Day Years [...] AM EST Office Visit [facility] [address] [place] [address] [place] [address] Mike Sanchez DO [address] [place] [address] documented as of this encounter Visit Diagnoses Not on filedocumented in this encounter Additional Health Concerns Assessment Noted Time PHQ-2 Depression Total Score: 0 04/13/20 19 9:04 AM EDT documented as of this encounter Care Teams [employer] Relationship Specialty Start Date End Date Love Anders, LIZY PCP - General 04/24/17 09/09/23 Mike Sanchez DO [address] [place] [phone] PCP - General Internal Medicine 09/10/23 Shady Bueno MD [address] [place] [phone] Insurance Assigned Provider 10/12/22 07/12/23 Mike Sanchez DO [address] [place] [phone] Insurance Assigned Provider 10/10/24 documented as of this encounter Additional Source Comments The information contained in this document represents components of the legal health record. It is not the complete legal health record.[facility]
--- OUTSIDE RECORDS SUMMARY | 2025-06-21 12:46 | XMS_ITS | Encounter Summary ---
Author Organization [facility] Address [address] [place] [address] Phone Care Team Providers Care Internal Investigator Name Role Phone Mike Sanchez DO Primary Care Provider Mike Sanchez DO Unavailable [phone] Encounter Details Date Type Department Care Team (Late st Contact Info) Description 12/10/2024 Telephone [facility] [address] [place] [address] Mike Sanchez DO [address] [facility] [address]nd [place] [address] [email or web address] Social History Tobacco Use Types Packs/Day Years [...] Description 07/12/2025 10:30 AM EST Office Visit [address] [place] [address] Mike Sanchez DO [address] [place] [address] [email or web address] documented as of this encounter Visit Diagnoses Not on filedocumented in this encounter Additional Health Concerns Assessment Noted Time PHQ-2 Depression Total Score: 0 11/27/19 24 2:30 PM EDT documented as of this encounter Care Teams Internal Investigator Relationship Specialty Start Date End Date Mike Sanchez DO [address] [place] [phone] PCP - General Internal Medicine 09/10/23 Mike Sanchez DO [address] [place] [phone] Insurance Assigned Provider 10/10/24 documented as of this encounter Additional Source Comments The information contained in this document represents components of the legal health record. It is not the complete legal health record.[facility]
--- OUTSIDE RECORDS SUMMARY | 2025-06-21 12:46 | XMS_ITS | Encounter Summary ---
Author Organization [facility] Address [address] [place] [address] Phone Care Team Providers Care Data Manager Name Role Phone Love Anders NP Primary Care Provider [phone] Shady Bueno MD Unavailable [phone] Mike Sanchez DO Primary Care Provider Mike Sanchez DO Unavailable [phone] Encounter Details Date Type Department Care Team (Late st Contact Info) Description 08/29/2021 Prep for Surgery [facility] Interventional Rad [address] [place] [address] Sonam Alegre MD [address] [place] [address] [email or web address] Social History Tobacco Use Types Packs/Day Years [...] Description 07/12/2025 10:30 AM EST Office Visit [facility] [address] [place] [address] [place] [address] Mike Sanchez DO [address] [place] [address] documented as of this encounter Visit Diagnoses Not on filedocumented in this encounter Additional Health Concerns Assessment Noted Time PHQ-2 Depression Total Score: 0 04/13/20 19 9:04 AM EDT documented as of this encounter Care Teams Data Manager Relationship Specialty Start Date End Date Love Anders, PRESENTATION MANAGER PCP - General 04/24/17 09/09/23 Mike Sanchez DO [address] [place] [phone] PCP - General Internal Medicine 09/10/23 Shady Bueno MD [address] [place] [phone] Insurance Assigned Provider 10/12/22 07/12/23 Mike Sanchez DO [address] [place] [phone] Insurance Assigned Provider 10/10/24 documented as of this encounter Additional Source Comments The information contained in this document represents components of the legal health record. It is not the complete legal health record.[facility]
--- OUTSIDE RECORDS SUMMARY | 2025-06-21 12:46 | XMS_ITS | Encounter Summary ---
Author Organization [facility] Address [address] [place] [address] Phone Care Team Providers Care Purse Maker Name Role Phone Love Anders NP Primary Care Provider Shady Bueno MD Unavailable [phone] Mike Sanchez DO Primary Care Provider Mike Sanchez DO Unavailable [phone] Encounter Details Date Type Department Care Team (Late st Contact Info) Description 07/27/2021 Procedure Pass [facility] [address] [place] [address] Social History Tobacco Use Types Packs/Day Years [...] AM EST Office Visit [facility] [address] [place] [address] [place] [address] Mike Sanchez DO [address] [place] [phone] documented as of this encounter Visit Diagnoses Not on filedocumented in this encounter Additional Health Concerns Assessment Noted Time PHQ-2 Depression Total Score: 0 04/13/20 19 9:04 AM EDT documented as of this encounter Care Teams Purse Maker Relationship Specialty Start Date End Date Love Anders, LZIY PCP - General 04/24/17 09/09/23 Mike Sanchez DO [address] [place] [address] PCP - General Internal Medicine 09/10/23 Shady Bueno MD [address] [place] [phone] Insurance Assigned Provider 10/12/22 07/12/23 Mike Sanchez DO [address] [place] [phone] Insurance Assigned Provider 10/10/24 documented as of this encounter Additional Source Comments The information contained in this document represents components of the legal health record. It is not the complete legal health record.[facility]
== END 2025-06-21 10:16 | disposition home or self-care (01) ==
LOC: HO.HAP 10:15
PROVIDERS: Visit Provider Nurse Practitioner Family
DX: Z46.1 Encounter for fitting and adjustment of hearing aid (principal); H90.3 Sensorineural hearing loss, bilateral
CPT/HCPCS: 92593; V5266